=== PATIENT | male | born 1970 | race Hispanic/Latino ===

== ENCOUNTER 2018-07-06 11:04 | Inpatient (IN) | payer OTHER ==
[2018-07-06 13:09] LABS: #Basophils 0.1 thou/uL (0.0-0.2); #Eosinphils 0.1 thou/uL (0.0-0.7); #Lymphocytes 1.5 thou/uL (1.20-3.40); #Monocytes 0.5 thou/uL (0.11-0.59); #Neutrophils 2.9 thou/uL (1.40-6.50); %Basophils 1.3 % (0.0-1.0); %Eosinophils 2.5 % (0.0-10.0); %Lymphocytes 29.3 % (21.0-51.0); %Monocytes 9.4 % (0.0-10.0); %Neutrophils 57.5 % (42.0-75.0); Hemoglobin 14.4 g/dL (14.0-18.0); Mean Corpuscular HGB CONC 34.6 g/dL (32.0-36.0); Mean Corpuscular Hemoglobin 32.4 pg (27.0-31.0); Mean Corpuscular Volume 93.6 fL (78.0-98.0); Mean Platelet Volume 8.6 fL (7.4-10.4); Platelet Count 147 thou/uL (130-400); RBC Distribution Width 12.3 % (11.5-14.5); Red Blood Cell (RBC) Count 4.46 mill/uL (4.70-6.10); White Blood Cell (WBC) Count 5.1 thou/uL (4.8-10.8)
[2018-07-06 13:38] LABS: ALT (SGPT) 40 U/L (8-55); AST (SGOT) 32 U/L (5-34); Albumin 4.3 g/dL (3.5-5.0); Alkaline Phosphatase 61 U/L (40-150); Anion Gap 10 mmol/L (10-20); BUN (Urea Nitrogen) 14 mg/dL (8.9-20.6); Bilirubin, Total 0.4 mg/dL (0.2-1.2); Calc. Creatinine Clearance 0 mL/min (70-130); Calcium 9.2 mg/dL (7.8-10.44); Carbon Dioxide 28 mmol/L (22-29); Chloride 107 mmol/L (98-107); Estimated GFR-MDRD Greater than 90; Globulin 2.9 g/dL (2.4-3.5); Glucose 87 mg/dL (70-105); Potassium 4.1 mmol/L (3.5-5.1); Protein, Total 7.2 g/dL (6.0-8.3); Sodium 141 mmol/L (136-145)
[2018-07-06 13:43] LABS: CKMB 5.6 ng/mL (0-6.6)
--- NOTE | 2018-07-06 14:46 | CT ---
CT BRAIN WITHOUT CONTRAST: Date: 07/06/18 HISTORY: Headache. FINDINGS: No evidence of infarct, hemorrhage, midline shift, or abnormal extra-axial fluid collections are seen . The ventricular size is normal and the basilar cisterns are patent. The bony calvarium is intact. T he visualized paranasal sinuses and mastoid air cells are well aerated. IMPRESSION: No CT evidence of acute intracranial process. POS: [facility]
--- NOTE | 2018-07-06 14:57 | RAD ---
CHEST 1 VIEW: Date: 07/06/18 INDICATION: Left leg pain and tingling and left arm pain. FINDINGS: There is moderate cardiomegaly, stable to comparison dated 11/20/14. No definite consolidation, pleur al effusion, or pneumothorax is evident. No acute osseous abnormality is evident. Body habitus slight ly limits image detail. IMPRESSION: No definite acute abnormality within limitations of exam. Stable cardiomegaly. POS: [facility]
[2018-07-06 15:09] LABS: PTT 32.8 SEC (22.9-36.1)
--- NOTE | 2018-07-06 15:26 | CT ---
CTA HEAD WITH IV CONTRAST AND 3D POSTPROCESSING CTA NECK WITH IV CONTRAST AND 3D POSTPROCESSING: Date: 07/06/18 HISTORY: Headache. Left leg pain and tingling for 5 days. Left arm pain for 3 days. FINDINGS: There is good flow in the common carotid, internal carotid arteries and their major branches, and the vertebrobasilar system. No aneurysm or significant stenosis or major branch occlusion is seen. No ce rvical lymphadenopathy is seen. The airway is patent. There are degenerative changes in the spine. IMPRESSION: Unremarkable exam. POS: [facility]
[2018-07-06 15:46] LABS: Troponin I 0.139 ng/mL (< 0.028)
[2018-07-06] MEDS ORDERED: Iopamidol 370 76% 100 ML VIAL ONE (16:18)
[2018-07-06] MEDS ORDERED: Calcium Carbonate 500 MG ChewTAB PO PRN (18:57)
[2018-07-06] MEDS ORDERED: Guaifenesin DM 100-10/5 ML UDCUP PO PRN (18:57)
[2018-07-06] MEDS ORDERED: Acetaminophen 325 MG TAB PO PRN (18:57)
[2018-07-06] MEDS ORDERED: Enoxaparin Sodium 100 MG/ML SYRINGE SC SCH (21:00)
--- NOTE | 2018-07-06 21:39 | HP ---
REASON FOR ADMISSION: Left-sided paraesthesias, demand ischemia. HISTORY OF PRESENTING ILLNESS: The patient gives history of having left-sided paraesthesia for almost a week now. This was mostly in the left upper thigh area. From last 3 days, he developed paraesthesias and numbness, specifically numbness and burning sensation in the left hand from last 3 days. He went to work this morning, felt dizzy at work and finally made it to the emergency room here. The patient has not been feeling good and also is sleeping more than his usual sleep hours. He got concerned, hence came to emergency room. 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 The patient states that he has had a coronary angiogram done 3 years back, which was normal by Dr. Soto. No prior history of stroke. He says he is compliant with his CPAP machine for sleep apnea. No cough or expectoration. No history of fever. Currently, he is moving all extremities. PAST MEDICAL AND SURGICAL HISTORY: 1. Morbid obesity. 2. Right wrist tendon injury with repair and weakness in the hand secondary to that. 3. Obstructive sleep apnea, on CPAP. 4. Seasonal allergies. 5. Cardiac cath done 3 years ago, was normal. CURRENT MEDICATIONS: None. ALLERGIES: NO KNOWN DRUG ALLERGIES. PERSONAL HISTORY: Does not abuse alcohol or drugs. No history of smoking. FAMILY HISTORY: Mother has a history of hypertension and is at bedside here. Father of motor vehicle accident at the age of 59 years. Code status is full. Power of reprographics associate is his mom. REVIEW OF SYSTEMS: CONSTITUTIONAL: Negative for weight loss or gain, ability to conduct usual activities. SKIN: Negative for rash, itching. EYES: Negative for double vision, pain. ENT/MOUTH: Negative for nose bleeding, neck stiffness, pain, tenderness. CARDIOVASCULAR: Negative for palpitations, dyspnea on exertion, orthopnea. RESPIRATORY: Negative for shortness of breath, wheezing, cough, hemoptysis, fever or night sweats. GASTROINTESTINAL: Negative for poor appetite, abdominal pain, heartburn, nausea , vomiting, constipation, or diarrhea. GENITOURINARY: Negative for urgency, frequency, dysuria, nocturia. MUSCULOSKELETAL: Negative for pain, swelling. NEUROLOGIC/PSYCHIATRIC: Negative for anxiety, depression. ALLERGY/IMMUNOLOGIC: Negative for skin rash, bleeding tendency. PHYSICAL EXAMINATION: GENERAL: The patient is a 48-year-old male, who is currently not in any acute distress. VITAL SIGNS: Blood pressure 134/81, pulse 58 per minute, respiratory rate 20 per minute, temperature 97.8 degrees Fahrenheit, and saturating 93% on room air. NECK: Supple. No elevated JVD. HEENT: Eyes; extraocular muscles intact. Pupils reacting to light. Oral cavity; mucous membranes are moist. No exudates or congestion. CARDIOVASCULAR: S1 and S2 heard. Regular rhythm. RESPIRATORY: Air entry 1+ bilateral. No rales or rhonchi. ABDOMEN: Soft. Bowel sounds heard. No tenderness, rigidity, or guarding. EXTREMITIES: No peripheral edema or calf tenderness. VASCULAR SYSTEM: Peripheral pulses 2+ bilateral. No ischemic ulcerations or gangrenes. CENTRAL NERVOUS SYSTEM: Cranial nerves are grossly intact. Motor system; strength is 5/5 in all 4 extremities except right wrist area, where he has had prior tendon injury with repair. Reflexes are 2+ bilateral. Babinski is downgoing. Cerebellar signs are intact. Gait was not tested. PSYCHIATRIC: The patient's mood is euthymic. No hallucinations or delusions. LABORATORY DATA: CT angio head done shows good flow in the common carotid, internal carotid arteries and major branches. In the vertebrobasilar system, no aneurysm or significant stenosis or occlusion seen. No cervical lymphadenopathy. CT of brain without contrast done shows no acute intracranial abnormalities. Chest x-ray done shows no acute cardiopulmonary abnormalities, but there is mild cardiomegaly. White count of 5, H and H of 14 and 41, platelet count 147, MCV is 93 with 57% neutrophils. PT/INR/PTT within normal limits. Electrolytes are stable, BUN 14, creatinine 0.8, serum glucose 87. CK level is 387. Troponin I is indeterminate , peaking up to 0.14. CK-MB 5.6. BNP is 41. CLINICAL IMPRESSION AND PLAN: The patient will be under observation on stroke unit for left-sided paraesthesias to rule out transient ischemic attack. We will obtain MRI without contrast in the morning. He also has demand ischemia likely from his paraesthesias. He has had a normal coronary angiogram done just in 2014 with no flow-limiting disease seen. He is morbidly obese and also has obstructive sleep apnea. We will obtain vitamin B12 and folic acid levels. He will be on normal saline at 80 mL per hour for a total of 2 L. He will be on nitropaste 0.5 inch every 8 hourly along with the full dose of aspirin and Lipitor at 40 mg q.h.s. A small dose of Lopressor for cardiac protection. Echo with 2D Doppler will be obtained for LV function. We will obtain consultation with Dr. Melendez for Cardiology and Neurology on-call as well. The patient is morbidly obese and weighs around 172 kilos. He has life-threatening obesity and needs to work towards losing his weight with healthy eating and exercising. The patient had prior interest in doing gastric sleeve procedure 3 years ago, but has given up on that per prior records. Job ID: [id number] MTDD
[2018-07-06] MEDS: Sodium Chloride 0.9% 1,000 ML IV SCH (21:55)
[2018-07-06] MEDS: Atorvastatin Calcium 40 MG TAB PO SCH (21:56)
[2018-07-06] MEDS: Famotidine 20 MG TAB PO SCH (22:00)
[2018-07-06] MEDS: Metoprolol Tartrate 25 MG TAB PO SCH (22:00)
[2018-07-06] MEDS: Nitroglycerin 2% Ointment 1 INCH/1 GM Packet TOP SCH (22:01)
[2018-07-06 22:26] LABS: Troponin I 0.134 ng/mL (< 0.028)
[2018-07-07 06:01] LABS: #Eosinphils 0.2 thou/uL (0.0-0.7); #Lymphocytes 1.7 thou/uL (1.20-3.40); #Monocytes 0.5 thou/uL (0.11-0.59); #Neutrophils 2.7 thou/uL (1.40-6.50); %Basophils 0.7 % (0.0-1.0); %Lymphocytes 32.5 % (21.0-51.0); %Monocytes 10.6 % (0.0-10.0); %Neutrophils 52.2 % (42.0-75.0); Hemoglobin 13.7 g/dL (14.0-18.0); Mean Corpuscular HGB CONC 33.6 g/dL (32.0-36.0); Mean Corpuscular Hemoglobin 31.7 pg (27.0-31.0); Mean Corpuscular Volume 94.2 fL (78.0-98.0); Platelet Count 143 thou/uL (130-400); RBC Distribution Width 12.4 % (11.5-14.5); Red Blood Cell (RBC) Count 4.32 mill/uL (4.70-6.10); White Blood Cell (WBC) Count 5.1 thou/uL (4.8-10.8)
[2018-07-07] MEDS: Nitroglycerin 2% Ointment 1 INCH/1 GM Packet TOP SCH (06:19)
[2018-07-07 06:25] LABS: Anion Gap 12 mmol/L (10-20); BUN (Urea Nitrogen) 17 mg/dL (8.9-20.6); Calc. Creatinine Clearance 268 mL/min (70-130); Calcium 8.7 mg/dL (7.8-10.44); Carbon Dioxide 22 mmol/L (22-29); Cardiac Risk 4.7 (Less than 4.5); Chloride 107 mmol/L (98-107); Cholesterol 187 mg/dl (< 200 Desired); Estimated GFR-MDRD Greater than 90; Glucose 95 mg/dL (70-105); HDL Cholesterol 40 mg/dL (>60 Neg Risk); LDL Cholesterol, Calculated 93 mg/dL; Potassium 4.5 mmol/L (3.5-5.1); Sodium 136 mmol/L (136-145); Triglycerides 271 mg/dL (Less than 150)
[2018-07-07 08:48] LABS: Folate (Folic Acid) 12.3 ng/mL (7.0-31.4)
[2018-07-07] MEDS: Aspirin 325 mg Enteric Coated Tablet PO SCH (08:55)
[2018-07-07] MEDS: Famotidine 20 MG TAB PO SCH ×2 (08:55→20:42)
[2018-07-07] MEDS: Sodium Chloride 0.9% 1,000 ML IV SCH (09:47)
[2018-07-07] MEDS: Metoprolol Tartrate 25 MG TAB PO SCH ×2 (09:47→20:46)
--- NOTE | 2018-07-07 12:35 | PDOC.PN ---
- Subjective Encounter Start Date: 07/07/18 Encounter Start Time: 11:30 Subjective: still has left sided parasthesias (numbness and tingling), is moving well -: no chest pain or sob or palp - Objective Resuscitation Status - Order Detail: 07/06/18 18:50 Resuscitation Status Routine Resuscitation Status: FULL: Full Resuscitation MAR Reviewed: Yes Vital Signs & Weight: Vital Signs (12 hours) Temp Pulse Resp BP BP Pulse Ox 07/07/18 11:59 98.5 F 54 L 20 121/81 94 L 07/07/18 08:00 98.3 F 52 L 18 128/78 92 L 07/07/18 06:18 52 L 128/77 07/07/18 04:00 97.3 F L 56 L 19 119/68 93 L Weight Weight 379 lb 11.2 oz I&O: 07/06/18 07/07/18 07/08/18 06:59 06:59 06:59 Intake Total 645 Balance 645 Result Diagrams: 07/07/18 05:40 07/07/18 05:40 Phys Exam - Physical Examination HEENT: PERRLA, moist MMs Neck: no JVD, supple Respiratory: no wheezing, no rales Cardiovascular: RRR, no significant murmur Gastrointestinal: soft, non-tender, positive bowel sounds Musculoskeletal: no edema, pulses present Neurological: non-focal, moves all 4 limbs Psychiatric: normal affect, A&O x 3 Dx/Plan (1) TIA (transient ischemic attack) Code(s): G45.9 - TRANSIENT CEREBRAL ISCHEMIC ATTACK, UNSPECIFIED Status: Acute (2) Demand ischemia of myocardium Code(s): I24.8 - OTHER FORMS OF ACUTE ISCHEMIC HEART DISEASE Status: Acute (3) Morbid obesity Code(s): E66.01 - MORBID (SEVERE) OBESITY DUE TO EXCESS CALORIES Status: Chronic (4) ELISABETH (obstructive sleep apnea) Code(s): G47.33 - OBSTRUCTIVE SLEEP APNEA (ADULT) (PEDIATRIC) Status: Chronic (5) Dyslipidemia Code(s): E78.5 - HYPERLIPIDEMIA, UNSPECIFIED Status: Acute - Plan await MRI and echo results -: had normal cath 3 yrs back -: no motor deficits clinically -: add tricor and lipitor to asp -: dc lovenox full dose and nitropaste (asymptomatic with prior N cath) * . await cardio and neuro opinion. Review of Systems - Medications/Allergies Allergies/Adverse Reactions: Allergies Allergy/AdvReac Type Severity Reaction Status Date / Time No Known Allergies Allergy Verified 07/07/18 01:30 Medications: Current Medications Acetaminophen (Tylenol) 650 mg PO Q4H PRN PRN Reason: Headache/Fever/Mild Pain (1-3) Last Admin: 07/07/18 08:55 Dose: 650 mg Aspirin (Ecotrin) 325 mg PO DAILY [facility] Last Admin: 07/07/18 08:55 Dose: 325 mg Atorvastatin Calcium (Lipitor) 40 mg PO HS [facility] Last Admin: 07/06/18 21:56 Dose: 40 mg Calcium Carbonate (Tums) 1,000 mg PO Q4H PRN PRN Reason: Heartburn or Indigestion Famotidine (Pepcid) 20 mg PO BID [facility] Last Admin: 07/07/18 08:55 Dose: 20 mg Guaifenesin/Dextromethorphan (Robitussin Dm) 15 ml PO Q4H PRN PRN Reason: Cough Sodium Chloride (Normal Saline 0.9%) 1,000 mls @ 80 mls/hr IV .[id number] [facility] Stop: 07/07/18 19:59 Last Admin: 07/07/18 09:47 Dose: 1,000 mls Metoprolol Tartrate (Lopressor) 12.5 mg PO BID [facility] Last Admin: 07/07/18 09:47 Dose: 12.5 mg Sodium Chloride (Flush - Normal Saline) 10 ml IVF PRN PRN PRN Reason: Saline Flush
[2018-07-07] MEDS: Atorvastatin Calcium 40 MG TAB PO SCH (20:42)
--- NOTE | 2018-07-07 23:12 | CON ---
DATE OF CONSULTATION: 07/07/2018 REASON FOR NEUROLOGY CONSULT: Left-sided paresthesias. HISTORY OF PRESENT ILLNESS: This is a 48-year-old male, who states that for about a week, he has had symptoms on his left side. He states that his left upper leg experiences a burning pain and numbness on the anterolateral aspect of his left thigh. It is made worse if he walks. It gets better if he sits. It may last for few seconds or few minutes. The other thing he has experienced is he gets a burning pain and numbness in his left arm. He says it seems to start in his fingers, mainly the middle three fingers on the left hand. It often occurs during sleep and wakes him up. He states that there is a burning pain associated with this that emanates from his fingers up his arm towards his shoulder. He says that it seems to get worse during sleep. He typically sleeps on his back and holds the pillow to his chest with his arms crossed over the pillow. He uses a CPAP machine. He has been on CPAP for severe obstructive sleep apnea over the last 8 years. He states that his first CPAP worked very well, and he would feel very rested after 4 hours of sleep. Now on the current CPAP, he sleeps 12 or 13 hours and does not feel rested when he wakes up. His chronic medical problems are significant for sleep apnea, severe obesity, chronic right hand weakness due to an old tendon injury on his right hand. PAST MEDICAL HISTORY: Significant for sleep apnea. He has had a surgery couple of years ago for what was thought to be a chest tumor. He underwent thoracotomy on the lateral side of the chest. 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 He states that he used to be in [facility] in the past, and while he was in [facility], he was on a more healthier diet than he is now, and he lost 160 pounds. Gradually, since he has been out of [facility], he eats more fast food and has been gradually gaining more weight. He has a history of chest pain in the past, but he had a cardiac cath, which was negative several years ago. He has had surgery on his right wrist for the tendon damage. SOCIAL HISTORY: He does not smoke or drink. 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 FAMILY HISTORY: Positive for coronary artery disease and diabetes. REVIEW OF SYSTEMS: A 14-point review of systems is negative except for the numbness and pain episodes, also sleeping a lot. He also noted that he has filters in his house, which has an old central air unit, will get very dirty in just a matter of a couple of weeks. He and his brother live there at the house. They have been burning candles for the saints constantly 24 hours a day, and I am wondering if may be that is contributing to some of his problems. His mother is present at this time. PHYSICAL EXAMINATION: GENERAL: He is awake, alert, oriented x3. In general, he is morbidly obese. VITAL SIGNS: Weight is recorded in the chart at 379 pounds. HEENT: Normal. LUNGS: Clear. HEART: No murmurs. Regular rhythm. ABDOMEN: Protuberant. No masses. EXTREMITIES: No clubbing, cyanosis or edema. SKIN: No rashes. MUSCULOSKELETAL: Joints, no swelling. Right hand fingers are little weak with limited range of motion. There is a positive Phalen's sign on flexion of his left wrist. NEUROLOGIC: He is awake, alert, and oriented x3. Cranial nerves 2 through 12 tested normally. Pupils 2 mm and reactive. Discs are sharp. Motor, 5/5 strength in the arms and legs except for the right hand chronic injury to the tendon. DTRs are 1+. Toes are downgoing. Sensation is normal to light touch. Coordination, finger to nose and heel to melendez is normal. Gait normal. REVIEW OF STUDIES: Show CT of the brain and CT of the neck, does not show any significant stenosis of the arteries. CAT scan of the brain without contrast is normal. Note that an MRI of the brain was ordered; however, the MRI machine cannot accommodate him due to size. Other test results; hemoglobin is 13.7, hematocrit 40.7, platelets 143,000, white count 5.1. Troponins were elevated. There were several, 0.134, 0.140, 0.139, and 0.140. Normal is less than 0.028. Sodium is 136, potassium 4.5, chloride 107, CO2 of 22, BUN 17, creatinine 0.82, glucose was 95, calcium 8.7. Triglycerides elevated at 271. Cholesterol 187. LDL 93, HDL 40, B12 level is 987, which is okay. Folate is 12.30, which is normal. Pro-time 13.0, INR 1.0, PTT is 32.8. MEDICATIONS: Currently, he is on; 1. Lipitor. 2. Pepcid. 3. Tricor. 4. Metoprolol. 5. Aspirin 325 mg a day. IMPRESSION: 1. Episodes of left arm burning pain and tingling and left thigh burning and tingling. He did also notice some numbness of the left face. These symptoms could be consistent with transient ischemic attacks; however, could also be consistent and probably more likely due to peripheral nerve problems, possibly cervical radiculopathy and/or left carpal tunnel syndrome, also possibility of lumbar radiculopathy and/or lateral cutaneous nerve of thigh syndrome on the left. Of note, the MRI machine here cannot accommodate him. 2. Also I suspect that his sleep apnea has not been adequately treated because he is sleeping 12 or 13 hours a day and wakes up feeling un-rested. This can also lead to strokes or cardiac problems or heart attacks or arrhythmias, which could in turn lead to transient ischemic attacks or strokes. PLAN: Recommend echocardiogram, and I will see if that has been ordered. Also recommend manager case to help him get an MRI of the brain, MRI of the cervical spine, and MRI of the lumbar spine. These could of course be done as an outpatient. The patient also needs to be set up with an outpatient neurologist, so that he can get nerve testing for cervical and/or lumbar radiculopathy and possible carpal tunnel syndrome on the left. Also recommend that he see a sleep specialist and have a sleep study done with his current CPAP. This may need to be adjusted or he may need to have a new machine done. It appears that his sleep apnea is not being adequately treated, which can lead to heart problem, strokes, arrhythmias, and also more weight gain. He sees a Cardiology. He has also been consulted for his elevated troponins. I recommend that his thyroid be checked, and hemoglobin A1c. I see that a random blood sugar was not elevated; however, it does run in his family, in his brother. Also recommend that he try not to burn the candles in his house and may need to have his air conditioning unit replaced or inspected and possibly the air ducts cleaned or replaced. I discussed with the patient, his mother is also present. Job ID: [id number]
[2018-07-08] MEDS: Fenofibrate 48 MG TAB PO SCH (09:43)
[2018-07-08] MEDS: Aspirin 325 mg Enteric Coated Tablet PO SCH (09:43)
[2018-07-08] MEDS: Famotidine 20 MG TAB PO SCH ×2 (09:44→20:45)
--- NOTE | 2018-07-08 11:58 | PDOC.PN ---
- Subjective Encounter Start Date: 07/08/18 Encounter Start Time: 09:00 Subjective: no new complaints -: is ambulating in room -: no chest pain or palp - Objective Resuscitation Status - Order Detail: 07/06/18 18:50 Resuscitation Status Routine Resuscitation Status: FULL: Full Resuscitation MAR Reviewed: Yes Vital Signs & Weight: Vital Signs (12 hours) Temp Pulse Resp BP Pulse Ox 07/08/18 11:41 98.8 F 54 L 18 143/83 H 95 07/08/18 08:00 97.9 F 52 L 16 137/77 95 07/08/18 05:41 95 07/08/18 04:00 97.8 F 48 L 19 135/78 95 07/08/18 00:00 97.7 F 57 L 19 123/84 94 L Weight Weight 379 lb 11.2 oz I&O: 07/07/18 07/08/18 07/09/18 06:59 06:59 06:59 Intake Total 645 1347 Balance 645 1347 Result Diagrams: 07/07/18 05:40 07/07/18 05:40 Phys Exam - Physical Examination HEENT: PERRLA, moist MMs Neck: no JVD, supple Respiratory: no wheezing, no rales Cardiovascular: RRR, no significant murmur Gastrointestinal: soft, non-tender, positive bowel sounds Musculoskeletal: no edema, pulses present Neurological: non-focal, moves all 4 limbs Psychiatric: normal affect, A&O x 3 Dx/Plan (1) TIA (transient ischemic attack) Code(s): G45.9 - TRANSIENT CEREBRAL ISCHEMIC ATTACK, UNSPECIFIED Status: Acute (2) Demand ischemia of myocardium Code(s): I24.8 - OTHER FORMS OF ACUTE ISCHEMIC HEART DISEASE Status: Acute (3) Morbid obesity Code(s): E66.01 - MORBID (SEVERE) OBESITY DUE TO EXCESS CALORIES Status: Chronic (4) ELISABETH (obstructive sleep apnea) Code(s): G47.33 - OBSTRUCTIVE SLEEP APNEA (ADULT) (PEDIATRIC) Status: Chronic (5) Dyslipidemia Code(s): E78.5 - HYPERLIPIDEMIA, UNSPECIFIED Status: Acute - Plan hemo/neurostable -: Cannot fit in MRI machine, no focal motor deficits -: is going for stress test, dc home if -ve -: echo showed normal ef and wm -: on asp, lipitor and tricor, dc lopressor (HR 50's) * . Review of Systems - Medications/Allergies Allergies/Adverse Reactions: Allergies Allergy/AdvReac Type Severity Reaction Status Date / Time No Known Allergies Allergy Verified 07/07/18 01:30 Medications: Current Medications Acetaminophen (Tylenol) 650 mg PO Q4H PRN PRN Reason: Headache/Fever/Mild Pain (1-3) Last Admin: 07/07/18 08:55 Dose: 650 mg Aspirin (Ecotrin) 325 mg PO DAILY [facility] Last Admin: 07/08/18 09:43 Dose: 325 mg Atorvastatin Calcium (Lipitor) 40 mg PO HS [facility] Last Admin: 07/07/18 20:42 Dose: 40 mg Calcium Carbonate (Tums) 1,000 mg PO Q4H PRN PRN Reason: Heartburn or Indigestion Famotidine (Pepcid) 20 mg PO BID [facility] Last Admin: 07/08/18 09:44 Dose: 20 mg Fenofibrate (Tricor) 48 mg PO DAILY [facility] Last Admin: 07/08/18 09:43 Dose: 48 mg Guaifenesin/Dextromethorphan (Robitussin Dm) 15 ml PO Q4H PRN PRN Reason: Cough Sodium Chloride (Flush - Normal Saline) 10 ml IVF PRN PRN PRN Reason: Saline Flush Last Admin: 07/08/18 09:44 Dose: 10 ml
[2018-07-08] MEDS: Atorvastatin Calcium 40 MG TAB PO SCH (20:45)
[2018-07-09 01:15] VITALS: BMI 51.4
--- NOTE | 2018-07-09 07:49 | CON ---
DATE OF CONSULTATION: HISTORY OF PRESENT ILLNESS: Chandra Esparza is a 48-year-old male, who has been evaluated by Dr. Soto in the past. He was seen in the office for preoperative evaluation prior to gastric sleeve surgery, and a stress test was scheduled. However, Mr. Esparza decided against bariatric surgery and also did not have the stress test. He then presented in November 2014, with chest discomfort with 3 troponins in the indeterminate range. He underwent cardiac catheterization, which revealed normal coronary arteries. He now is admitted with complaints of left thigh pain as well as development of paresthesias and pain in his left arm. He denies any chest discomfort or shortness of breath. He states that he had been feeling very fatigued and decided to come for evaluation. PAST MEDICAL HISTORY: Morbid obesity, obstructive sleep apnea, and normal coronary arteries in 2014. PAST SURGICAL HISTORY: Right wrist surgery. 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 This was in [place]. MEDICATIONS: None. ALLERGIES: NONE. SOCIAL HISTORY: He does not smoke or drink. FAMILY HISTORY: Negative for coronary artery disease. REVIEW OF SYSTEMS: Twelve-point review of systems is unremarkable except as noted above. PHYSICAL EXAMINATION: VITAL SIGNS: Blood pressure 135/78, pulse of 48. He was on metoprolol 12.5 b.i.d., however, this has been discontinued. HEENT: PERRL. NECK: Supple. CHEST: Clear. CARDIAC: S1 and S2 are normal without any S3, S4, or murmurs. Carotid upstroke is normal without bruits. ABDOMEN: Morbidly obese. Normal bowel sounds. No tenderness. EXTREMITIES: Reveal trace pretibial edema. NEUROLOGICAL: Grossly intact. LABORATORY DATA: EKG reveals sinus bradycardia with nonspecific intraventricular conduction block. Hemoglobin 13.7, hematocrit 40.7, white count 5100, and platelets 143,000. Sodium 136, potassium 4.5, chloride 107, carbon dioxide 22, BUN 17, and creatinine 0.82. Troponin I has been up to 0.140. Cholesterol 187, triglycerides 271, HDL 40, and LDL 93. TSH is normal. CK-MB is normal. IMPRESSION: 1. Left leg pain, left arm pain and paresthesias, currently being evaluated by Neurology. 2. Indeterminate troponin I with history of normal coronary arteries 3 years ago. 3. Morbid obesity. 4. Obstructive sleep apnea. 5. History of left thoracotomy. PLAN: Mr. Esparza had normal coronary arteries on catheterization 3 years ago. Also, at that time, he had indeterminate troponin I. However, they certainly are higher this time. He will undergo adenosine Cardiolite testing for further evaluation. I agree with discontinuation of the beta-lurdes with his bradycardia. Job ID: [id number]
--- NOTE | 2018-07-09 07:51 | PRG ---
DATE OF SERVICE: 07/08/2018 NEUROLOGY FOLLOWUP NOTE SUBJECTIVE: Following up for left arm numbness and pain and left thigh numbness and burning. The patient states that he still has the same symptoms, which come and go. There is no weakness associated with this. He does note that the numbness and burning of the arm can wake him up from sleep. He also uses a CPAP at home for severe obstructive sleep apnea. He does not think that his current machine is working because he still sleeps 12 hours a day or more and still wakes up unrefreshed. The MRI here was attempted, but not able to accommodate his size. OBJECTIVE: VITAL SIGNS: Blood pressure 135/67, pulse 48, respiratory rate 18, temperature 98.4, O2 saturation is 95% on room air. HEENT: Normal. GENERAL: He is morbidly obese with a recorded weight of 379 pounds. LUNGS: Clear. EXTREMITIES: No edema. NEUROLOGIC: He is awake, alert. Cranial nerves 2 through 12 test normally. Motor; 5/5 strength in arms and legs. DTRs are 1+. Toes are downgoing. Sensation is intact except for a slight area of numbness in the lateral anterior area of the left thigh. REVIEW OF TEST RESULTS: Showed that CTA of the head and neck and CAT scan of the brain were normal. He had an echocardiogram, which showed technically difficult exam. Left atrium moderately dilated. There was a chest x-ray done on 07/06/2018, that showed moderate cardiomegaly stable to an exam that was done on November 20, 2014. There was no definite consolidation, pleural effusion, or pneumothorax. Body habitus slightly limited the exam detail. IMPRESSION: Episodic numbness, tingling, and burning pain in the left hand, which goes up his left arm and also in the anterolateral aspect of his left thigh. The symptoms could be consistent with transient ischemic attack, however, could also be consistent with a cervical and/or lumbar radiculopathy and could be consistent with left carpal tunnel syndrome and left meralgia paresthetica. He also sleeps excessive amount, and I suspect that his CPAP is not working. PLAN: manager of distribution pharmaceutical assistant to help the patient get an outpatient open MRI of the brain, cervical spine, and lumbar spine, and also follow up with an outpatient neurologist, so he can get nerve testing for cervical and lumbar radiculopathy and possible carpel tunnel syndrome on the left, and also recommend that he see a sleep specialist to have a sleep study done with his CPAP. I will order a wrist splint for his left upper extremity. I do not have any further neurological recommendations at this time. Neurology will sign off. Job ID: [id number]
[2018-07-09] MEDS: Aspirin 325 mg Enteric Coated Tablet PO SCH (09:30)
[2018-07-09] MEDS: Famotidine 20 MG TAB PO SCH (09:30)
[2018-07-09] MEDS: Fenofibrate 48 MG TAB PO SCH (09:34)
--- NOTE | 2018-07-09 10:57 | PDOC.PN ---
- Subjective Encounter Start Date: 07/09/18 Encounter Start Time: 09:00 Subjective: no chest pain or sob -: no new symptoms -: is amb in room - Objective Resuscitation Status - Order Detail: 07/06/18 18:50 Resuscitation Status Routine Resuscitation Status: FULL: Full Resuscitation MAR Reviewed: Yes Vital Signs & Weight: Vital Signs (12 hours) Temp Pulse Resp BP Pulse Ox 07/09/18 07:30 98.6 F 54 L 18 139/80 95 07/09/18 04:00 97.6 F 60 18 119/90 94 L 07/08/18 23:46 98.5 F 54 L 18 134/72 94 L Weight Weight 379 lb I&O: 07/08/18 07/09/18 07/10/18 06:59 06:59 06:59 Intake Total 1347 1080 Balance 1347 1080 Result Diagrams: 07/07/18 05:40 07/07/18 05:40 Phys Exam - Physical Examination HEENT: PERRLA, moist MMs Neck: no JVD, supple Respiratory: no wheezing, no rales Cardiovascular: RRR, no significant murmur Gastrointestinal: soft, non-tender, positive bowel sounds Musculoskeletal: no edema, pulses present Neurological: non-focal, moves all 4 limbs Psychiatric: normal affect, A&O x 3 Dx/Plan (1) TIA (transient ischemic attack) Code(s): G45.9 - TRANSIENT CEREBRAL ISCHEMIC ATTACK, UNSPECIFIED Status: Resolved (2) Demand ischemia of myocardium Code(s): I24.8 - OTHER FORMS OF ACUTE ISCHEMIC HEART DISEASE Status: Acute Comment: stable (3) Morbid obesity Code(s): E66.01 - MORBID (SEVERE) OBESITY DUE TO EXCESS CALORIES Status: Chronic (4) ELISABETH (obstructive sleep apnea) Code(s): G47.33 - OBSTRUCTIVE SLEEP APNEA (ADULT) (PEDIATRIC) Status: Chronic (5) Dyslipidemia Code(s): E78.5 - HYPERLIPIDEMIA, UNSPECIFIED Status: Acute - Plan await stress test results, if -ve home -: hemo/neuro stable -: needs outpt emg and f/u -: continue asp, lip, tricor * . Review of Systems - Medications/Allergies Allergies/Adverse Reactions: Allergies Allergy/AdvReac Type Severity Reaction Status Date / Time No Known Allergies Allergy Verified 07/07/18 01:30 Medications: Current Medications Acetaminophen (Tylenol) 650 mg PO Q4H PRN PRN Reason: Headache/Fever/Mild Pain (1-3) Last Admin: 07/07/18 08:55 Dose: 650 mg Aspirin (Ecotrin) 325 mg PO DAILY [facility] Last Admin: 07/09/18 09:30 Dose: 325 mg Atorvastatin Calcium (Lipitor) 40 mg PO HS [facility] Last Admin: 07/08/18 20:45 Dose: 40 mg Calcium Carbonate (Tums) 1,000 mg PO Q4H PRN PRN Reason: Heartburn or Indigestion Famotidine (Pepcid) 20 mg PO BID [facility] Last Admin: 07/09/18 09:30 Dose: 20 mg Fenofibrate (Tricor) 48 mg PO DAILY [facility] Last Admin: 07/09/18 09:34 Dose: 48 mg Guaifenesin/Dextromethorphan (Robitussin Dm) 15 ml PO Q4H PRN PRN Reason: Cough Sodium Chloride (Flush - Normal Saline) 10 ml IVF PRN PRN PRN Reason: Saline Flush Last Admin: 07/08/18 20:45 Dose: 10 ml
[2018-07-09] MEDS ORDERED: Regadenoson 0.4 MG/5 ML SYRINGE ONE (11:10)
--- NOTE | 2018-07-09 13:49 | NM ---
NUCLEAR MEDICINE CARDIAC PERFUSION EXAMINATION WITH EJECTION FRACTION: COMPARISON: None. HISTORY: 48-year-old male with chest pain. TECHNIQUE: A two day nuclear medicine cardiac perfusion examination was performed. Rest images were obtained usi ng 30.9 mCi of technetium-99m sestamibi. Stress images were obtained using 33 mCi of technetium-99m s estamibi and Lexiscan. FINDINGS: Tomographic images show no fixed or reversible perfusion defects. Gated images show normal wall motio n with an ejection fraction of 67%. EDV: 152 ml LHR: 0.2 TID: 0.9 IMPRESSION: No evidence of ischemia. POS: MARY
[2018-07-09 15:35] VITALS: BP 134/72; TEMP 98.7
--- NOTE | 2018-07-09 16:24 | DIS ---
DATE OF ADMISSION: 07/06/2018 DATE OF DISCHARGE: 07/09/2018 DISCHARGE DISPOSITION: Home. PRIMARY DISCHARGE DIAGNOSES: Transient ischemic attack, resolved; demand ischemia, stable with negative stress test. SECONDARY DISCHARGE DIAGNOSES: Morbid obesity; obstructive sleep apnea, on CPAP ; dyslipidemia. PROCEDURES DONE DURING HOSPITALIZATION: Echo with 2D Doppler showed an EF of 50 % to 55%. Nuclear stress test done showed no reversible ischemia. There were no fixed defects either. Ejection fraction was 67% with normal wall motion. CT angio of brain was unremarkable. CT of brain done without contrast showed no acute intracranial process. Chest x-ray done showed no acute infiltrate. Hemoglobin and hematocrit were 13 and 40, platelet count 143. Total cholesterol 187, triglycerides 271, LDL 93, HDL 40. B12 level is 987. Folic acid 12.3. TSH 1.76. Troponin was indeterminate peaking up to 0.14, CK-MB 5.6. DISCHARGE MEDICATIONS: 1. Aspirin 325 mg p.o. daily. 2. Tricor 48 mg p.o. daily. 3. Lipitor 40 mg p.o. daily. ALLERGIES: NO KNOWN DRUG ALLERGIES. INPATIENT CONSULTS: Dr. Janey Livingston for Neurology, Dr. Melendez for Cardiology. DISCHARGE PLAN: The patient to follow up with primary care physician in 1 week. BRIEF COURSE DURING HOSPITALIZATION: The patient initially got admitted with complaints of left-sided tingling and numbness. This was more in the hand area and left thigh area. The patient has had initial CT brain without contrast and CT angio of brain done which did not reveal any acute abnormality. He had indeterminate troponin as well. He was admitted to stroke unit and has had a complete neuro and cardiac workup done. The patient has had nuclear stress test done, which showed no fixed or reversible defects. In fact, he has had a cardiac catheterization done 3 years back, which showed no flow-limiting disease. He was evaluated by neurologist as well. The patient will need outpatient EMG studies via his primary care physician's referral. The patient also has some issues with his CPAP machine and has had sleep studies done in the last three years or so. He was advised to call his office machine servicer apprentice or sleep medicine physician and rectify the issues. He is ambulating and eating well. No focal motor deficits were noted. He was optimized on medications for hypertriglyceridemia and dyslipidemia. He is hemodynamically stable and will be shortly discharged home. Patient was seen and examined on the day of discharge. Also was counselled regarding his life threatening obesity and options of bariatric procedure if he failed diet and exercise regimens. Job ID: [id number] MTDD
[2018-07-11 07:37] LABS: Hemoglobin A 97.4 % (96.4-98.8); Hemoglobin A2 2.6 % (1.8-3.2); Hemoglobin F 0 % (0.0-2.0); Interpretation Note: (.)
== END 2018-07-09 17:02 | disposition home or self-care (01) | DRG 69 ==
LOC: ERS 11:04 → 2SE 20:00 → OBSVTOIN 20:00
PROVIDERS: ADMIT Internal Medicine; ATTEND Internal Medicine
DX: G45.9 Transient cerebral ischemic attack, unspecified (principal); Z68.43 Body mass index [BMI] 50.0-59.9, adult; I24.8 Other forms of acute ischemic heart disease; E66.01 Morbid (severe) obesity due to excess calories; G47.33 Obstructive sleep apnea (adult) (pediatric); E78.5 Hyperlipidemia, unspecified; R20.2 Paresthesia of skin; R00.1 Bradycardia, unspecified; Z82.49 Family history of ischemic heart disease and other diseases of the circulatory system
CPT/HCPCS: 36415; 70450; 70496; 70498; 71045; 78452; 80048; 80053; 80061; 82553; 82607; 82746; 83021; 83735; 83880; 84443; 84484; 85025; 85610; 85730; 90471; 90686; 93005; 93017; 93306; 94760; A9500; G0008; G8978-GP-CH; G8979-GP-CH; G8980-GP-CH; G8987-GO-CI; G8988-GO-CI; G8989-GO-CI; G8996-GN-CH; G8997-GN-CH; G8998-GN-CH; J1650; J2785

== ENCOUNTER 2018-10-04 13:01 | Observation (INO) | payer OTHER ==
[2018-10-04] MEDS ORDERED: Nitroglycerin 2% Ointment 1 INCH/1 GM Packet ONE (13:24)
[2018-10-04] MEDS ORDERED: Senokot S 8.6-50 MG TAB PO PRN ×2 (15:35)
[2018-10-04] MEDS ORDERED: Benzonatate 100 MG CAP PO PRN (15:35)
[2018-10-04] MEDS ORDERED: Nitroglycerin 0.4 MG TAB (25 Tab Bottle) SL PRN (15:35)
[2018-10-04] MEDS ORDERED: Diabetic Tussin 200 MG/10 ML UDCUP PO PRN (15:35)
[2018-10-04] MEDS ORDERED: Acetaminophen 325 MG TAB PO PRN (15:35)
[2018-10-04] MEDS ORDERED: Calcium Carbonate 500 MG ChewTAB PO PRN (15:35)
[2018-10-04] MEDS ORDERED: cloNIDine 0.1 MG TAB PO PRN (15:35)
[2018-10-04] MEDS ORDERED: hydrALAZINE 20 MG/ML VIAL SLOW IVP PRN (15:35)
[2018-10-04] MEDS ORDERED: Bisacodyl 5 MG TAB PO PRN ×2 (15:35)
[2018-10-04] MEDS ORDERED: Ondansetron PF 4 MG/2 ML Vial IVP PRN ×2 (15:35)
[2018-10-04 15:48] LABS: Acetaminophen Less than 6.0 mcg/mL (10.0-30.0); Alcohol Less than 10 mg/dL (Less than 10); Salicylate Less than 8.0 mg/dL (15.0-30.0)
--- NOTE | 2018-10-04 17:00 | HP ---
PRIMARY CARE PHYSICIAN: Dr. Leigh Lopez. CHIEF COMPLAINT: Dizziness. HISTORY OF PRESENTING ILLNESS: Mr. Esparza is a pleasant 48-year-old male with past medical history of morbid obesity, sleep apnea, on CPAP at night as well as history of dyslipidemia, who presented in the emergency room at [place] with the above-mentioned complaint. History is mainly obtained by the patient himself. Electronic medical records have been reviewed. Mr. Esparza was last admitted to our facility in July 2018 and he underwent a workup for possible TIA. At that time, he underwent a cardiac stress test as well as echocardiogram, which was unremarkable. He had a CT angio of his head and neck, also along with a CT of the brain, which was normal. He reports that he has been doing fairly well, but this morning while he was driving in the car with his brother to work, he started to feel a sudden onset of severe dizziness. He had to stop the car and let his brother drive. When they arrived to work, his dizziness did not get better, and he was driven to the emergency room in [place]. He continued to be dizzy over there as well. He reports that he has been having bouts of bronchitis for the last 2 months or so, treated by multiple rounds of antibiotics by the PCP. He still struggles with some chronic cough for the last 2 or 3 months. He reports that he has traveled to [place] earlier this month, which was a 3-hour flight and later he traveled to [place] by car a week later after that trip. He denies any shortness of breath or chest pain with these symptoms today. He did break out in a sweat. He denies any swelling or pain in his legs. He states that he is compliant with his CPAP machine and it is working properly, but he needs to change the filter multiple times. Interestingly, he reports that every time he is out of his house, his symptoms are much better. His brother, who lives in the house with him suffer from the similar symptoms of chronic bronchitis. They feel that the house has mold. He also reports that he burned multiple candles around the clock nonstop for the last few years because of some christian reasons. These candles burn day and night and even right now he has four candles burning in the house. Nevertheless, in the emergency room today, he was found to have indeterminate troponin and was sent to our facility for further workup. He was hemodynamically stable upon presentation with oxygen saturation 93% on room air, blood pressure 133/81. He is noted to have chronically elevated troponin, but his troponin was elevated more than the last time. It was repeated in our emergency room and it did not change much, but his CPK-MB came back elevated at this time at 7.0. His total creatine kinase was checked and was better. It was mildly elevated at 389. His EKG did not have any specific changes except for right bundle branch block. He was noted to have a heart rate sometimes down to 40s or 50s without any symptoms. He has received aspirin in the emergency room and his IV fluids. His dizziness is better. He denies any recent changes in his medication. No recent steroid use either. PAST MEDICAL HISTORY: 1. Morbid obesity. 2. Obstructive sleep apnea, on CPAP. 3. Seasonal allergies. 4. Cardiac cath done 3 years ago, which was normal. 5. Stress test done which was normal. PAST SURGICAL HISTORY: Right wrist tendon repair. ALLERGIES: NO KNOWN MEDICATION ALLERGIES. SOCIAL HISTORY: He denies any drug, tobacco, or alcohol abuse. Lives at his own home with his brother. FAMILY HISTORY: Significant for hypertension in his mother. Father of motor vehicle accident at the age of 59 years. CODE STATUS: Full code. Power of victorian literature professor is the mom. HOME MEDICATIONS: He takes 81 mg of aspirin and an unknown cholesterol pill. REVIEW OF SYSTEMS: A 12-point review of system was done. It is negative except for those mentioned in the history and physical. LABORATORY DATA: His CBC shows WBCs at 4.7, otherwise unremarkable. Serum chemistries show chloride 108, BUN 22, with creatinine of 0.85. His 1st troponin is 0.198 with repeat troponin of 0.196. His CK-MB was initially 5.5, which jumped up to 7.0. Chest x-ray was not done. The 12-lead EKG shows sinus bradycardia with right bundle branch block by my review. PHYSICAL EXAMINATION: VITAL SIGNS: Upon presentation to the ER, blood pressure 160/97, pulse of 51, respirations 16, saturating 95% on room air, and temperature 97.9. GENERAL: No acute distress. Lying comfortably in bed. Awake, alert, and oriented x3. HEENT: Mucous membrane is moist and pink. No oropharyngeal exudate or erythema. Head is normocephalic, atraumatic. Pupils are equal, reactive to light and accommodation. Extraocular movement intact. NECK: Supple without any lymphadenopathy, JVD, or bruit. CHEST: Clear to auscultation without any wheezing, rales, or rhonchi. ABDOMEN: Morbidly obese, soft, nontender, nondistended. Positive bowel sounds. EXTREMITIES: Free of any cyanosis, clubbing, or edema. NEUROLOGICAL: Nonfocal. SKIN: Free of any rashes or bruises. Feels warm and dry to touch. PSYCHIATRIC: Normal affect. IMPRESSION AND PLAN: 1. Dizziness. The patient has had a fairly thorough cardiac and neurological workup done less than 3 months ago, including a normal echocardiogram, a normal cardiac stress test and a normal CT angio of the head and neck. He does have elevated troponin more than his baseline now along with elevation of his CK-MB. He, however, has mild elevation of his total creatine kinase as well, so I am not sure if his CK-MB elevation is solely because of cardiac issues. He will be admitted under observation status and we will continue to trend serial cardiac enzymes and provide him with a full dose of aspirin for now. He will be monitored for any arrhythmias or bradycardia causing his symptoms. He has no neurological signs or symptoms at this time. a. We will check a D-dimer given his recent history of travel and if it is abnormal, we will do a CT angiogram to rule out pulmonary embolism. b. Also given his history of having multiple candles burning day and night for the last few years, a small possibility of carbon monoxide poisoning is also not completely ruled out. Even though it is far fetched, we will go ahead and check an ABG for carboxyhemoglobin level. If it is elevated, he will be treated with high-flow oxygen. c. The possibility of hypercarbia with baseline sleep apnea is also entertained. ABG will be checked as above. He can also have vestibular symptoms from recent repeated bouts of bronchitis if all of the cardiac workup is negative. 2. Morbid obesity. Continue continuous positive airway pressure while in the hospital. 3. History of dyslipidemia. Reconcile home medication once confirmed. 4. Morbid obesity. The patient educated about diet and exercise program and noninvasive weight loss procedures. DISPOSITION: Mr. Esparza is currently being admitted to the hospital with indeterminate troponin and dizziness for further workup. Estimated length of stay at this time is less than two midnights. Further management will depend upon his clinical course. Job ID: [id number]
[2018-10-04 17:49] LABS: CKMB 6.2 ng/mL (0-6.6)
[2018-10-04 18:21] LABS: Actual Bicarbonate (HCO3a) 26.7 mEq/L (22-28); Analyzer IN Cardio ER; Base Excess (BEa) 2.2 mEq/L (-2.0 to +3.0); CO2 Tension 41.1 mmHg (35.0-45.0); Calcium, Ionized 1.16 mmol/L (1.12-1.30); Carboxyhemoglobin (COHb) 0.5 gm% (0.0-3.0); Hemoglobin (Hb) 14.3 g/dL (14.0-18.0); O2 Tension (PaO2) 73.5 mmHg (80.0-100.0); Potassium - ABG Lab 3.73 mmol/L (3.70-5.30); pH, Arterial 7.43 (7.35-7.45)
[2018-10-04 18:23] LABS: ALV-art Gradient 24.855 (0-20); Puncture Site RRA
[2018-10-04 20:30] VITALS: BMI 51.0
[2018-10-04 21:55] LABS: Troponin I 0.165 ng/mL (< 0.028)
[2018-10-05 05:29] LABS: #Eosinphils 0.2 thou/uL (0.0-0.7); #Lymphocytes 1.6 thou/uL (1.20-3.40); #Monocytes 0.7 thou/uL (0.11-0.59); #Neutrophils 3.8 thou/uL (1.40-6.50); %Basophils 0.8 % (0.0-1.0); %Eosinophils 3.6 % (0.0-10.0); %Lymphocytes 24.8 % (21.0-51.0); %Monocytes 10.4 % (0.0-10.0); %Neutrophils 60.4 % (42.0-75.0); Hemoglobin 13.4 g/dL (14.0-18.0); Mean Corpuscular HGB CONC 32.9 g/dL (32.0-36.0); Mean Corpuscular Volume 97.4 fL (78.0-98.0); Mean Platelet Volume 9.2 fL (7.4-10.4); Platelet Count 142 thou/uL (130-400); RBC Distribution Width 12.6 % (11.5-14.5); Red Blood Cell (RBC) Count 4.18 mill/uL (4.70-6.10); White Blood Cell (WBC) Count 6.3 thou/uL (4.8-10.8)
[2018-10-05 05:46] LABS: Anion Gap 10 mmol/L (10-20); BUN (Urea Nitrogen) 19 mg/dL (8.9-20.6); Calc. Creatinine Clearance 266 mL/min (70-130); Calcium 9.1 mg/dL (7.8-10.44); Carbon Dioxide 26 mmol/L (22-29); Chloride 107 mmol/L (98-107); Estimated GFR-MDRD Greater than 90; Glucose 88 mg/dL (70-105); Potassium 3.9 mmol/L (3.5-5.1); Sodium 139 mmol/L (136-145)
[2018-10-05] MEDS ORDERED: Aspirin 325 MG TAB PO SCH (08:00)
[2018-10-05] MEDS ORDERED: Enoxaparin Sodium 40 MG/0.4 ML SYRINGE SC SCH (09:00)
[2018-10-05 12:04] VITALS: BP 128/62; TEMP 98.3
[2018-10-05] MEDS ORDERED: Atorvastatin Calcium 40 MG TAB PO SCH (21:00)
--- NOTE | 2018-10-06 02:47 | DIS ---
DATE OF ADMISSION: 10/04/2018 DATE OF DISCHARGE: 10/05/2018 CONDITION: At the time of discharge, stable and improved. DISCHARGE DIAGNOSES: 1. Dizziness of unclear etiology, likely vestibular in nature. 2. Morbid obesity. 3. Obstructive sleep apnea, on CPAP. DISCHARGE MEDICATIONS: 1. Aspirin 325 mg daily. 2. Atorvastatin 40 mg daily. PRIMARY CARE PHYSICIAN: Leigh Lopez DO HISTORY OF PRESENTING ILLNESS: Mr. Esparza is a very pleasant 48-year-old overweight male with past medical history of sleep apnea, who presented to the emergency room with complaints of dizziness of sudden onset. It was associated with some diaphoresis, and he presented to outside emergency room. He was recently admitted to our facility in June 2018, at which time, he had a normal nuclear medicine stress test and echocardiogram. He also has had a negative cardiac catheterization in 2014. Upon presentation, he was hemodynamically stable. His initial cardiac enzymes were indeterminate, which seemed to be chronic for this patient. However, his rise in CK-MB prompted admission. His D-dimer was negative at the time of admission. HOSPITAL COURSE: The patient remained stable throughout the hospitalization. He was on telemetry monitoring. He did not have any arrhythmias. He did have right bundle-branch block on the EKG and his heart rate was running sometimes in high 40s to high 50s. He had some minor dizziness, but nothing major like that prompted him to come to the hospital. His repeat CK-MB was normal and cardiac enzymes trended low normal too. At this time, it seems like his symptoms can be due to the bradycardia and right bundle-branch block. After discussing it with on-call hospice volunteer, Dr. Melendez, graciously helped me set him up with a Holter monitor through his clinic. He will follow up with Cardiology Clinic with Dr. Soto who has seen him in the past. He is instructed about the use of CPAP machine, which he is compliant with. He is also found to be burning candles 27/02 due to some voodoo reasons in the house and feels that the house also has mold giving him allergies and chronic bronchitis. He is instructed to get the house inspected and move out if possible. He is also instructed to stop burning the candles. As of this morning, he is hemodynamically stable and asymptomatic and feels better and will be discharged home. His blood pressure is 128/62, heart rate anywhere from 46 to 54. No acute distress. Chest clear to auscultation bilaterally, rate and rhythm are regular. Job ID: [id number]
== END 2018-10-05 13:28 | disposition home or self-care (01) ==
LOC: ERS 13:01 → 2SW 16:35
PROVIDERS: ADMIT Internal Medicine; ATTEND Internal Medicine
DX: J96.90 Respiratory failure, unspecified, unspecified whether with hypoxia or hypercapnia (principal); E78.5 Hyperlipidemia, unspecified; G47.33 Obstructive sleep apnea (adult) (pediatric); E66.01 Morbid (severe) obesity due to excess calories; Z68.43 Body mass index [BMI] 50.0-59.9, adult; Z79.82 Long term (current) use of aspirin; Z79.899 Other long term (current) drug therapy; Z99.89 Dependence on other enabling machines and devices
CPT/HCPCS: 36415; 80048; 80307; 82550; 82553; 82805; 85025; 85379; 93005; 96372; G0378; J1650

== ENCOUNTER 2019-12-19 11:49 | Inpatient (IN) | payer OTHER ==
[2019-12-19 12:33] LABS: #Eosinphils 0.2 thou/uL (0.0-0.7); #Lymphocytes 1.4 thou/uL (1.20-3.40); #Monocytes 0.6 thou/uL (0.11-0.59); %Basophils 0.6 % (0.0-1.0); %Eosinophils 2.8 % (0.0-10.0); %Monocytes 9.4 % (0.0-10.0); %Neutrophils 65.1 % (42.0-75.0); Hemoglobin 15.1 g/dL (14.0-18.0); Mean Corpuscular HGB CONC 32.7 g/dL (32.0-36.0); Mean Corpuscular Hemoglobin 31.5 pg (27.0-31.0); Mean Corpuscular Volume 96.4 fL (78.0-98.0); Mean Platelet Volume 9.1 fL (7.4-10.4); Platelet Count 140 thou/uL (130-400); RBC Distribution Width 12.9 % (11.5-14.5); White Blood Cell (WBC) Count 6.1 thou/uL (4.8-10.8)
[2019-12-19 12:54] LABS: ALT (SGPT) 30 U/L (8-55); AST (SGOT) 24 U/L (5-34); Albumin 4.3 g/dL (3.5-5.0); Alkaline Phosphatase 61 U/L (40-110); Anion Gap 13 mmol/L (10-20); BUN (Urea Nitrogen) 23 mg/dL (8.9-20.6); Bilirubin, Total 0.4 mg/dL (0.2-1.2); CK (CPK) 243 U/L (30-200); Calc. Creatinine Clearance 0 mL/min (70-130); Calcium 9.3 mg/dL (7.8-10.44); Carbon Dioxide 23 mmol/L (22-29); Chloride 106 mmol/L (98-107); Estimated GFR-MDRD Greater than 90; Globulin 2.9 g/dL (2.4-3.5); Glucose 89 mg/dL (70-105); Potassium 4.1 mmol/L (3.5-5.1); Protein, Total 7.2 g/dL (6.0-8.3); Sodium 138 mmol/L (136-145)
[2019-12-19] MEDS ORDERED: Aspirin Chewable 81 MG TAB ONE (13:10)
[2019-12-19 13:16] LABS: CKMB 5.6 ng/mL (0-6.6)
--- NOTE | 2019-12-19 15:03 | RAD ---
TWO VIEW CHEST: 12/19/19 PA and lateral views obtained. INDICATIONS: Cough. COMPARISON: 05/17/14. There is mild cardiomegaly which was present on the prior exam and appears stable. The lungs appear c lear. No infiltrate or vascular congestion. No effusion. Osseous structures unremarkable with mild de generative changes in the spine. IMPRESSION: Cardiomegaly again noted. No acute lung process. POS: AGW
[2019-12-19 16:17] VITALS: BMI 50.9
[2019-12-19] MEDS ORDERED: Ondansetron PF 4 MG/2 ML Vial IVP PRN (16:52)
[2019-12-19 17:03] LABS: Troponin I 0.105 ng/mL (< 0.028)
[2019-12-19] MEDS ORDERED: Sodium Chloride 0.9% 1,000 ML IV SCH (17:15)
--- NOTE | 2019-12-19 17:20 | PDOC.HHP ---
Hospitalist HPI - History of Present Illness chest pain History of Present Illness: 49M w/ MHx of chronic bronchitis, ELISABETH (on CPAP, adherent), and morbid obesity presents with chest pain. Has had dry cough for months, but in past month or so increased in frequency, mostly in work environment. Starting Monday, progressively worse, left sided stabbing chest pain surrounding the medial part of his breath that was unchanged when he coughs. Not related to exertion. For the pain, he tried tylenol, which helped. Also endorses increased fatigue over the pat few days. Works with cattle and exerts himself, sometimes to the point of shortness of breath. On encounter, lying comfortably in bed and endorses improvement in pain since arrived to the ED. denies fever, chills, chest pain, pleuritic pain, dyspnea, sputum production, abdomianl pain, diarrhea, dysuria, recent sick contacts or travel ED Course: In the ED, found to have intdeterminate trop, EKG showed nonspecific conduction delay but no signs of ischemia. Was admitted to telemetry for further workup Hospitalist ROS - Review of Systems All other systems reviewed; all pertinent +/- noted in HPI/Subj Hospitalist History - Past Medical History Source: patient Cardiac: reports: no pertinent history Pulmonary: reports: bronchitis WOOL BRUSHER: reports: no pertinent history Gastrointestinal: reports: no pertinent history Heme/Onc: reports: no pertinent history Hepatobiliary: reports: no pertinent history Psych: reports: no pertinent history - Past Surgical History Past Surgical History: reports: no pertinent history - Family History Other Family History: obesity - Social History Smoking Status: Never smoker Alcohol: reports: Rare Drugs: reports: none Living Situation: Alone Activity level: independent ambulation - Exam General Appearance: NAD, awake alert General - other findings: morbidly obese Heart: RRR, no murmur, no gallops, no rubs, normal peripheral pulses Respiratory: no wheezes, no rales, no ronchi, normal chest expansion, no tachypnea, normal percussion Respiratory - other findings: diffusely reduced breath sounds, likely due to body habitus Extremities: no edema Psychiatric: normal affect, normal behavior, A&O x 3 Hospitalist Results - Labs Result Diagrams: 12/19/19 12:22 12/19/19 12:22 Lab results: WBC 6.1 thou/uL (4.8-10.8) 12/19/19 12:22 Hgb 15.1 g/dL (14.0-18.0) 12/19/19 12:22 Hct 46.3 % (42.0-52.0) 12/19/19 12:22 MCV 96.4 fL (78.0-98.0) 12/19/19 12:22 Plt Count 140 thou/uL (130-400) 12/19/19 12:22 Neutrophils % 65.1 % (42.0-75.0) 12/19/19 12:22 Sodium 138 mmol/L (136-145) 12/19/19 12:22 Potassium 4.1 mmol/L (3.5-5.1) 12/19/19 12:22 Chloride 106 mmol/L (98-107) 12/19/19 12:22 Carbon Dioxide 23 mmol/L (22-29) 12/19/19 12:22 BUN 23 mg/dL (8.9-20.6) H 12/19/19 12:22 Creatinine 0.79 mg/dL (0.7-1.3) 12/19/19 12:22 Glucose 89 mg/dL (70-105) 12/19/19 12:22 Calcium 9.3 mg/dL (7.8-10.44) 12/19/19 12:22 Total Bilirubin 0.4 mg/dL (0.2-1.2) 12/19/19 12:22 AST 24 U/L (5-34) 12/19/19 12:22 ALT 30 U/L (8-55) 12/19/19 12:22 Alkaline Phosphatase 61 U/L (40-110) 12/19/19 12:22 Creatine Kinase 243 U/L (30-200) H 12/19/19 12:22 CK-MB (CK-2) 5.6 ng/mL (0-6.6) 12/19/19 12:22 Troponin I 0.105 ng/mL (< 0.028) H 12/19/19 16:26 Serum Total Protein 7.2 g/dL (6.0-8.3) 12/19/19 12:22 Albumin 4.3 g/dL (3.5-5.0) 12/19/19 12:22 - EKG Interpretation EKG: as per HPI - Radiology Interpretation Chest x-ray Status: image reviewed by me Hospitalist H&P A/P - Problem (1) Acute exacerbation of chronic bronchitis Code(s): J20.9 - ACUTE BRONCHITIS, UNSPECIFIED; J42 - UNSPECIFIED CHRONIC BRONCHITIS Status: Acute (2) Morbid obesity Code(s): E66.01 - MORBID (SEVERE) OBESITY DUE TO EXCESS CALORIES Status: Chronic (3) ELISABETH (obstructive sleep apnea) Code(s): G47.33 - OBSTRUCTIVE SLEEP APNEA (ADULT) (PEDIATRIC) Status: Chronic - Plan Plan: #acute exacerbation of chronic bronchitis -endorses having cough for at least 3 months in each of the last two years, worse last month, mostly at work -likely URI vs. allergen -Chest pain noncardiac in nature; troponinemia appears to be chronic likely due to cor pulmonale -stress test in 2018 negative; pretest CAD consortium score low -acetaminophen PRN chest pain -viral panel -keep oxygen > 88% #ELISABETH -uses home CPAP when sleeps #morbid obesity -endorses bad eating habits, especially during COVID period -will benefit from outpatient analytical research chemist and bariatric surgery consultation considering BMI Dispo/PPx full code DVT ppx lovenox GI PPx no indication ELOS 1 midnight
[2019-12-19] MEDS ORDERED: Acetaminophen 500 MG TAB PO PRN (17:21)
[2019-12-19 20:02] LABS: Troponin I 0.108 ng/mL (< 0.028)
[2019-12-20 04:48] LABS: Anion Gap 13 mmol/L (10-20); BUN (Urea Nitrogen) 19 mg/dL (8.9-20.6); Calc. Creatinine Clearance 234 mL/min (70-130); Calcium 8.9 mg/dL (7.8-10.44); Carbon Dioxide 26 mmol/L (22-29); Chloride 105 mmol/L (98-107); Estimated GFR-MDRD 87; Glucose 87 mg/dL (70-105); Potassium 3.8 mmol/L (3.5-5.1); Sodium 140 mmol/L (136-145)
[2019-12-20] MEDS: Fluticasone Propionate Nasal Spray 16 gm Bottle NASAL SCH (09:33)
[2019-12-20] MEDS ORDERED: Regadenoson 0.4 MG/5 ML SYRINGE ONE (09:44)
[2019-12-20] MEDS ORDERED: Ketorolac Tromethamine 30 MG/ML VIAL IVP SCH (12:00)
[2019-12-20] MEDS: Enoxaparin Sodium 40 MG/0.4 ML SYRINGE SC SCH (15:53)
[2019-12-20] MEDS: Ibuprofen 800 MG TAB PO SCH (16:58)
--- NOTE | 2019-12-20 17:25 | CON ---
DATE OF CONSULTATION: HISTORY OF PRESENT ILLNESS: This patient is a pleasant 49-year-old gentleman who presents with recurrent chest discomfort. The patient was seen initially in 2014 with chest discomfort. He subsequently underwent cardiac catheterization, which revealed normal coronary arteries. The patient presented once again in 2018 with atypical chest pain. He underwent a Cardiolite stress test, which revealed no evidence of ischemia. The patient states he was in his usual state of health until this Monday. He once again developed left-sided chest discomfort. This has been a persistent discomfort for the last 5 days. The discomfort seems to be worse when he takes a deep breath. The patient also reports noticing increasing fatigue. The patient denies having any history of lightheadedness or syncope. PAST MEDICAL HISTORY: 1. Sleep apnea. 2. Dyslipidemia. 3. Morbid obesity. PAST SURGICAL HISTORY: 1. Chest surgery. 2. Wrist surgery. SOCIAL HISTORY: Nonsmoker. ALLERGIES: NO KNOWN DRUG ALLERGIES. MEDICATIONS: see nursing list. FAMILY HISTORY: Strong family history with a brother had coronary artery bypass graft surgery. REVIEW OF SYSTEMS: Ten-point system otherwise unremarkable. PHYSICAL EXAMINATION: GENERAL: Obese gentleman, in no acute distress. VITAL SIGNS: Blood pressure 126/64. NECK: No jugular venous distention. LUNGS: Clear to auscultation. HEART: Regular rate and rhythm. Normal S1 and S2. No murmurs. ABDOMEN: Distended. EXTREMITIES: No edema. VASCULAR: Radial pulses are 2+. LABORATORY RESULTS: Sodium is 140, potassium 3.8, chloride 105, bicarb 26, BUN 19, and creatinine 0.92. Troponin was 0.1. White blood cell count 6.1, hemoglobin 15.1, hematocrit 46.3, and his platelets are 140. EKG revealed normal sinus rhythm, nonspecific intraventricular conduction delay, nonspecific T-wave abnormality. Telemetry monitoring sinus bradycardia with pauses up to 2.4 seconds. IMPRESSION: 1. Chest pain, atypical, possibly due to pleurisy. 2. Bradycardia, probably secondary to sleep apnea. 3. Sleep apnea. 4. Morbid obesity. 5. Family history of coronary artery disease. This gentleman presents with atypical chest pain. This has been persistent for the past 5 days. His troponin level is indeterminate. Because of his strong family history, we would recommend repeat stress testing to make sure there is no evidence of significant ischemia. The patient will be treated with Toradol for possible pleurisy. From a cardiac standpoint, he has significant bradycardia, but is asymptomatic and this is most likely due to his underlying bradycardia. PLAN: 1. Treat with IV Toradol and nonsteroidal medication. 2. Repeat stress testing to make sure there is no evidence of significant ischemia. Job ID: [id number] MTDD
--- NOTE | 2019-12-20 20:42 | PDOC.HOSPP ---
- Subjective Encounter Date: 12/20/19 Encounter Time: 09:00 Subjective: overnight, multiple short pauses on telemetry between 1-3 seconds each. Continues to complain of increased fatigue. Chest pain improves with tylenol - Objective Vital Signs & Weight: Vital Signs (12 hours) Temp Pulse Resp BP BP Pulse Ox 12/20/19 19:40 98.3 F 56 L 20 146/73 H 95 12/20/19 15:41 97.9 F 50 L 16 128/70 95 12/20/19 11:02 98.0 F 50 L 18 126/64 96 Weight Weight 371 lb 7 oz I&O: 12/19/19 12/20/19 12/21/19 06:59 06:59 06:59 Intake Total 720 700 Output Total 700 Balance 720 0 Result Diagrams: 12/19/19 12:22 12/20/19 04:03 Hospitalist ROS - Review of Systems Constitutional: denies: fever, chills, sweats, weakness, malaise, other Respiratory: denies: cough, dry, shortness of breath, hemoptysis, SOB with excertion, pleuritic pain, sputum, wheezing, other Cardiovascular: reports: chest pain. denies: palpitations, orthopnea, paroxysmal noc. dyspnea Gastrointestinal: denies: nausea, vomiting, abdominal pain, diarrhea, constipation, melena, hematochezia, other Genitourinary: denies: dysuria, frequency, incontinence, hematuria, retention, other - Medication Medications: Active Medications Generic Name Dose Route Start Last Admin Trade Name Freq PRN Reason Stop Dose Admin Acetaminophen 1,000 mg 12/19/19 17:21 12/19/19 20:05 Tylenol PO 1,000 mg Q6H PRN Administration Moderate to Severe Pain (6-10) Enoxaparin Sodium 40 mg 12/20/19 09:00 12/20/19 15:53 Lovenox SC 40 mg 0900 FACUNDO Administration Fluticasone Propionate 0 gm 12/20/19 09:00 12/20/19 09:33 Flonase Nasal [place] NASAL 2 spr DAILY FACUNDO Administration Ibuprofen 800 mg 12/20/19 17:00 12/20/19 16:58 Motrin PO 800 mg TID- FACUNDO Administration - Exam General Appearance: NAD, awake alert Neck: no JVD Heart: RRR, no murmur, no gallops, no rubs, normal peripheral pulses Respiratory: CTAB, no wheezes, no rales, no ronchi, normal chest expansion, no tachypnea, normal percussion Gastrointestinal: soft, non-tender, non-distended, normal bowel sounds Extremities: no edema Psychiatric: normal affect, normal behavior, A&O x 3 Hosp A/P (1) Acute exacerbation of chronic bronchitis Code(s): J20.9 - ACUTE BRONCHITIS, UNSPECIFIED; J42 - UNSPECIFIED CHRONIC BRONCHITIS Status: Acute (2) Morbid obesity Code(s): E66.01 - MORBID (SEVERE) OBESITY DUE TO EXCESS CALORIES Status: Chronic (3) ELISABETH (obstructive sleep apnea) Code(s): G47.33 - OBSTRUCTIVE SLEEP APNEA (ADULT) (PEDIATRIC) Status: Chronic - Plan #Multiple pauses on telemetry -while sleeping -pending stress test #chest pain -atypical, improved with tylenol -changed to ibuprofen for better antiinflammatory properties compared to tylenol
[2019-12-21] MEDS: Fluticasone Propionate Nasal Spray 16 gm Bottle NASAL SCH (08:17)
[2019-12-21] MEDS: Ibuprofen 800 MG TAB PO SCH ×3 (08:17→16:03)
--- NOTE | 2019-12-21 13:11 | NM ---
NUCLEAR MEDICINE CARDIAC MYOCARDIAL PERFUSION SPECT EJECTION FRACTION STUDY WALL MOTION CINE: DATE: 12/21/2019 HISTORY: 49 year old male with dyslipidemia and family history of coronary artery disease presents with chest pain and elevated troponin TECHNIQUE: Number of days: 2 Rest study: Technetium 99m-sestamibi (Cardiolite) dose: 30.6 mCi Pharmacologic stress: Lexiscan dose: 0.4 mg Stress study: Technetium 99m-sestamibi (Cardiolite) dose: 31.7 mCi FINDINGS: CARDIAC (MYOCARDIAL PERFUSION) SPECT Images are somewhat degraded by motion. There is a small anterior wall apparently fixed defect. There are no reversible myocardial perfusion defects. EJECTION FRACTION STUDY Left ventricular EF = 46 % WALL MOTION CINE Hypokinesis of the posterior aspect of the septum IMPRESSION: 1. No evidence of reversible ischemia. 2. Decreased left ventricular ejection fraction of 46%. 3. Possible anterior wall small old infarction.
[2019-12-21] MEDS: Enoxaparin Sodium 40 MG/0.4 ML SYRINGE SC SCH (14:12)
[2019-12-21 14:59] LABS: Hep C IgG Ab Non-Reactive (NonReactive); Hep C Index 0.08 S/CO (0-0.79); Thyroid Stimulating Hormone 1.6252 uIU/mL (0.35-4.94)
--- NOTE | 2019-12-21 15:08 | EKG ---
Test Reason : Blood Pressure : / mmHG Vent. Rate : 055 BPM Atrial Rate : 055 BPM P-R Int : 182 ms QRS Dur : 120 ms QT Int : 468 ms P-R-T Axes : 037 006 013 degrees QTc Int : 447 ms Sinus bradycardia Non-specific intra-ventricular conduction delay Nonspecific T wave abnormality Abnormal ECG When compared with ECG of 04-OCT-2018 13:15, No significant change was found Triage Confirmed by MACY CHAVARRIA, ALECIA Richmond ([id number]), staff editor MARCELLE HEBERT ([id number]) on 12/21/2019 3:08:08 PM Referred By: Confirmed By:ALECIA CAVAZOS MD
--- NOTE | 2019-12-21 21:19 | PDOC.HOSPP ---
- Subjective Encounter Date: 12/21/19 Encounter Time: 13:00 Subjective: no overnight events. s/p stress test pending final report - Objective Vital Signs & Weight: Vital Signs (12 hours) Temp Pulse Resp BP Pulse Ox 12/21/19 15:58 98.0 F 53 L 16 136/76 97 12/21/19 12:34 98.0 F 52 L 14 127/68 95 12/21/19 10:48 95 Weight Weight 375 lb 3.2 oz I&O: 12/20/19 12/21/19 12/22/19 06:59 06:59 06:59 Intake Total 138 442 5170 Output Total 1250 1575 Balance 986 -684 -702 Result Diagrams: 12/19/19 12:22 12/20/19 04:03 Hospitalist ROS - Review of Systems Constitutional: denies: fever, chills, sweats, weakness, malaise, other Respiratory: denies: cough, dry, shortness of breath, hemoptysis, SOB with excertion, pleuritic pain, sputum, wheezing, other Cardiovascular: denies: palpitations, orthopnea, paroxysmal noc. dyspnea, edema Gastrointestinal: denies: nausea, vomiting, abdominal pain, diarrhea, constipation, melena, hematochezia, other Genitourinary: denies: dysuria, frequency, incontinence, hematuria, retention, other - Medication Medications: Active Medications Generic Name Dose Route Start Last Admin Trade Name Freq PRN Reason Stop Dose Admin Enoxaparin Sodium 40 mg 12/20/19 09:00 12/21/19 14:12 Lovenox SC 40 mg 0900 FACUNDO Administration Fluticasone Propionate 0 gm 12/20/19 09:00 12/21/19 08:17 Flonase Nasal [place] NASAL 2 spr DAILY FACUNDO Administration Ibuprofen 800 mg 12/20/19 17:00 12/21/19 16:03 Motrin PO 800 mg TID-WM FACUNDO Administration - Exam General Appearance: NAD, awake alert Heart: RRR, no murmur, no gallops, no rubs, normal peripheral pulses Respiratory: CTAB, no wheezes, no rales, no ronchi, normal chest expansion, no tachypnea, normal percussion Gastrointestinal: soft, non-tender, non-distended, normal bowel sounds, no palpable masses, no hepatomegaly, no splenomegaly, no bruit Hosp A/P (1) Acute exacerbation of chronic bronchitis Code(s): J20.9 - ACUTE BRONCHITIS, UNSPECIFIED; J42 - UNSPECIFIED CHRONIC BRONCHITIS Status: Acute (2) Morbid obesity Code(s): E66.01 - MORBID (SEVERE) OBESITY DUE TO EXCESS CALORIES Status: Chronic (3) ELISABETH (obstructive sleep apnea) Code(s): G47.33 - OBSTRUCTIVE SLEEP APNEA (ADULT) (PEDIATRIC) Status: Chronic - Plan #Multiple pauses on telemetry -while sleeping -pending stress test report -cardiology onboard -asymptomatic, likely no treatment required #chest pain -atypical, improved with tylenol -changed to ibuprofen for better antiinflammatory properties compared to tylenol
[2019-12-22] MEDS: Ibuprofen 800 MG TAB PO SCH ×3 (09:18→17:55)
[2019-12-22] MEDS: Enoxaparin Sodium 40 MG/0.4 ML SYRINGE SC SCH (09:18)
[2019-12-22] MEDS: Fluticasone Propionate Nasal Spray 16 gm Bottle NASAL SCH (09:18)
[2019-12-22] MEDS: Aspirin 81 mg Enteric Coated Tablet PO SCH (09:21)
[2019-12-22] MEDS: Lisinopril 10 MG TAB PO SCH (09:44)
--- NOTE | 2019-12-22 14:07 | PDOC.HOSPP ---
- Subjective Encounter Date: 12/22/19 Encounter Time: 09:00 Subjective: no overnight events. This morning, feels well and has no complaints. Endorses reduction in cough in hospital environment as compared to work. - Objective Vital Signs & Weight: Vital Signs (12 hours) Temp Pulse Resp BP BP BP Pulse Ox 12/22/19 11:57 98.4 F 52 L 16 128/67 94 L 12/22/19 07:50 95 12/22/19 07:33 98.3 F 51 L 18 144/82 H 95 12/22/19 03:27 97.6 F 53 L 18 120/64 96 Weight Weight 377 lb 14.4 oz I&O: 12/21/19 12/22/19 12/23/19 06:59 06:59 06:59 Intake Total 940 1475 Output Total 1250 1775 Balance -310 -300 Result Diagrams: 12/19/19 12:22 12/20/19 04:03 Hospitalist ROS - Review of Systems Constitutional: denies: fever, chills, sweats, weakness, malaise, other Respiratory: denies: cough, dry, shortness of breath, hemoptysis, SOB with excertion, pleuritic pain, sputum, wheezing, other Cardiovascular: denies: chest pain, palpitations, orthopnea, paroxysmal noc. dyspnea, edema, light headedness, other Gastrointestinal: denies: nausea, vomiting, abdominal pain, diarrhea, constipation, melena, hematochezia, other Genitourinary: denies: dysuria, frequency, incontinence, hematuria, retention, other - Medication Medications: Active Medications Generic Name Dose Route Start Last Admin Trade Name Heather PRN Reason Stop Dose Admin Aspirin 81 mg 12/22/19 09:00 12/22/19 09:21 Ecotrin PO 81 mg DAILY FACUNDO Administration Enoxaparin Sodium 40 mg 12/20/19 09:00 12/22/19 09:18 Lovenox SC 40 mg 0900 FACUNDO Administration Fluticasone Propionate 0 gm 12/20/19 09:00 12/22/19 09:18 Flonase Nasal [place] NASAL 2 spr DAILY FACUNDO Administration Ibuprofen 800 mg 12/20/19 17:00 12/22/19 12:02 Motrin PO 800 mg TID- FACUNDO Administration Lisinopril 10 mg 12/22/19 09:00 12/22/19 09:44 Zestril PO 10 mg DAILY FACUNDO Administration - Exam General Appearance: NAD, awake alert Heart: RRR, no murmur, no gallops, no rubs, normal peripheral pulses Respiratory: CTAB, no wheezes, no rales, no ronchi, normal chest expansion, no tachypnea, normal percussion Gastrointestinal: soft, non-tender, non-distended, normal bowel sounds, no palpable masses, no hepatomegaly, no splenomegaly, no bruit Extremities: no edema Psychiatric: normal affect, normal behavior, A&O x 3 Hosp A/P (1) Morbid obesity Code(s): E66.01 - MORBID (SEVERE) OBESITY DUE TO EXCESS CALORIES Status: Chronic (2) ELISABETH (obstructive sleep apnea) Code(s): G47.33 - OBSTRUCTIVE SLEEP APNEA (ADULT) (PEDIATRIC) Status: Chronic (3) Allergic rhinitis with postnasal drip Code(s): J30.9 - ALLERGIC RHINITIS, UNSPECIFIED; R09.82 - POSTNASAL DRIP Status: Acute - Plan #chest pain -nuclear stress showing small focal deficit that is old; EF 46% (reduced systolic function) -per cardiology, NPO midnight for possible cath tomorrow #SA ruby pause -while sleeping -pending stress test report -cardiology onboard -asymptomatic; on telemetry pause interval not complete multiples regular R-R; likely sinus ruby pause; likely no treatment required; deferring to cardiology #Allergic rhinitis with postnasal drip resuling in cough -patient endorses symptoms mostly at work, improvement in hospital, having had allergen testing that was positive for plants; has no sputum production, inconsistent with bronchitis -continue flonase -educate patient regarding avoidance and air purifiers ELOS: 1-2 midnights
[2019-12-22] MEDS: Atorvastatin Calcium 40 MG TAB PO SCH (20:23)
[2019-12-23 05:04] LABS: Cardiac Risk 3.8 (Less than 4.5)
[2019-12-23] MEDS: Ibuprofen 800 MG TAB PO SCH ×3 (08:28→17:42)
[2019-12-23] MEDS: Aspirin 81 mg Enteric Coated Tablet PO SCH (08:28)
[2019-12-23] MEDS: Fluticasone Propionate Nasal Spray 16 gm Bottle NASAL SCH (08:29)
[2019-12-23] MEDS: Lisinopril 10 MG TAB PO SCH (08:29)
[2019-12-23] MEDS: Enoxaparin Sodium 40 MG/0.4 ML SYRINGE SC SCH (12:48)
--- NOTE | 2019-12-23 17:14 | PDOC.CPN ---
- Subjective Date: 12/23/19 Time: 17:12 Interval history: No new issues. Talking to him he states he has felt tiored and fatigued for the last 3 weeks. approximately. His HR has been in the low 40's and has had several sinus pauses at 2.5 secs. - Review of Systems General: reports: fatigue. denies: fever/chills, weight/appetite/sleep changes , night sweats Respiratory: denies: cough, congestion, shortness of breath, exercise intolerance Cardiovascular: denies: chest pain, palpitation, edema, paroxysmal nocturnal dyspnea, orthopnea Gastrointestinal: denies: nausea, vomiting, diarrhea, constipation, abd pain, GI bleeding Musculoskeletal: denies: pain, tenderness, stiffness, swelling, arthritis/ arthralgias Neurological: denies: numbness, syncope, seizure, weakness - Objective Allergies/Adverse Reactions: Allergies Allergy/AdvReac Type Severity Reaction Status Date / Time No Known Allergies Allergy Verified 12/19/19 15:54 Visit Medications: Current Medications Aspirin (Ecotrin) 81 mg PO DAILY [facility] Last Admin: 12/23/19 08:28 Dose: 81 mg Atorvastatin Calcium (Lipitor) 40 mg PO HS [facility] Last Admin: 12/22/19 20:23 Dose: 40 mg Enoxaparin Sodium (Lovenox) 40 mg SC 0900 [facility] Last Admin: 12/23/19 12:48 Dose: 40 mg Fluticasone Propionate (Flonase Nasal [place]) 0 gm NASAL DAILY [facility] Last Admin: 12/23/19 08:29 Dose: 2 spr Ibuprofen (Motrin) 800 mg PO TID-WM [facility] Last Admin: 12/23/19 11:24 Dose: 800 mg Lisinopril (Zestril) 10 mg PO DAILY [facility] Last Admin: 12/23/19 08:29 Dose: 10 mg Ondansetron HCl (Zofran) 4 mg IVP Q6H PRN PRN Reason: Nausea/Vomiting Vital Signs & Weight: Vital Signs Temp Pulse Resp BP BP BP Pulse Ox 12/23/19 15:51 98.1 F 51 L 18 134/65 93 L 12/23/19 11:20 97.7 F 47 L 18 117/56 L 94 L 12/23/19 08:29 138/75 12/23/19 07:25 96.5 F L 52 L 14 130/73 95 Weight 375 lb 14.4 oz - Physical Exam General: alert & oriented x3 HEENT: mucus membranes moist Neck: supple neck Cardiac: regular rate and rhythm Lungs: clear to auscultation Neuro: grossly intact Abdomen: active bowel sounds Extremities: no edema Skin: clear Musculoskeletal: no pain - Labs Result Diagrams: 12/19/19 12:22 12/20/19 04:03 Troponin/CKMB CK-MB (CK-2) 5.6 ng/mL (0-6.6) 12/19/19 12:22 Troponin I 0.108 ng/mL (< 0.028) H 12/19/19 19:24 - Telemetry Sinus rhythms and dysrhythmias: sinus bradycardia (< 50 bpm) Supraventricular conduction: other (2.5 seconds pauses, several times. HR at 40. ) - Assessment/Plan Assessment/Plan: 1. Chest miguel, atypical. 2. Normal coronaries in 2014 3. besity 4. OSAusing CPAP. 5. Symptyomatic bradycardia. PLAN: - Highly suspicious of AV node dysfunction. - May need a PPM. - Will consult EP for their opinion on possibly needing PPM. I would think he will benefit as he is symptomatic and bradycardic.
--- NOTE | 2019-12-23 20:31 | PDOC.HOSPP ---
- Subjective Encounter Date: 12/23/19 Encounter Time: 08:00 Subjective: overnight, had additional pauses including this morning when the patient was awake, which is a change compared to previous days. Continues to be bradycardic and complain of fatigue. has no other complaints. - Objective Vital Signs & Weight: Vital Signs (12 hours) Temp Pulse Resp BP Pulse Ox 12/23/19 15:51 98.1 F 51 L 18 134/65 93 L 12/23/19 11:20 97.7 F 47 L 18 117/56 L 94 L Weight Weight 375 lb 14.4 oz I&O: 12/22/19 12/23/19 12/24/19 06:59 06:59 06:59 Intake Total 1475 1920 960 Output Total 1775 1200 850 Balance -300 720 110 Result Diagrams: 12/19/19 12:22 12/20/19 04:03 Hospitalist ROS - Review of Systems Constitutional: denies: fever, chills, sweats, weakness, malaise, other Respiratory: denies: cough, dry, shortness of breath, hemoptysis, SOB with excertion, pleuritic pain, sputum, wheezing, other Cardiovascular: denies: chest pain, palpitations, orthopnea, paroxysmal noc. dyspnea, edema, light headedness, other Gastrointestinal: denies: nausea, vomiting, abdominal pain, diarrhea, constipation, melena, hematochezia, other - Medication Medications: Active Medications Generic Name Dose Route Start Last Admin Trade Name Freq PRN Reason Stop Dose Admin Aspirin 81 mg 12/22/19 09:00 12/23/19 08:28 Ecotrin PO 81 mg DAILY FACUNDO Administration Atorvastatin Calcium 40 mg 12/22/19 21:00 12/22/19 20:23 Lipitor PO 40 mg HS FACUNDO Administration Enoxaparin Sodium 40 mg 12/20/19 09:00 12/23/19 12:48 Lovenox SC 40 mg 0900 FACUNDO Administration Fluticasone Propionate 0 gm 12/20/19 09:00 12/23/19 08:29 Flonase Nasal [place] NASAL 2 spr DAILY FACUNDO Administration Ibuprofen 800 mg 12/20/19 17:00 12/23/19 17:42 Motrin PO 800 mg TID-WM FACUNDO Administration Lisinopril 10 mg 12/22/19 09:00 12/23/19 08:29 Zestril PO 10 mg DAILY FACUNDO Administration - Exam General Appearance: NAD, awake alert Heart: no murmur, no gallops, no rubs Heart - other findings: bradycardic. additional sinus pause episodes on telemetry Gastrointestinal: soft, non-tender, non-distended, normal bowel sounds Extremities: no edema Psychiatric: normal affect, normal behavior, A&O x 3 Hosp A/P (1) Symptomatic bradycardia Code(s): R00.1 - BRADYCARDIA, UNSPECIFIED Status: Acute (2) Sinus pause Code(s): I45.5 - OTHER SPECIFIED HEART BLOCK Status: Acute (3) Morbid obesity Code(s): E66.01 - MORBID (SEVERE) OBESITY DUE TO EXCESS CALORIES Status: Chronic (4) ELISABETH (obstructive sleep apnea) Code(s): G47.33 - OBSTRUCTIVE SLEEP APNEA (ADULT) (PEDIATRIC) Status: Chronic (5) Allergic rhinitis with postnasal drip Code(s): J30.9 - ALLERGIC RHINITIS, UNSPECIFIED; R09.82 - POSTNASAL DRIP Status: Acute - Plan #symptomatic bradycardia #sinus pause -per cardiology, bradycardia and pauses related to fatigue -consult EP to assess pacemaker placement #Reduced systolic function -nuclear stress test showing EF 46%, local hypokinesis; euvolemic -continue current regimen #Allergic rhinitis with postnasal drip resuling in cough -patient endorses symptoms mostly at work, improvement in hospital, having had allergen testing that was positive for plants; has no sputum production, inconsistent with bronchitis -continue flonase -educate patient regarding avoidance and air purifiers Disposition: considering symptomatic despite previous interventions, bradycardia may be etiology and may require procedure. Therefore, transitioning to inpatient status ELOS: 1-2 midnights
[2019-12-23] MEDS: Atorvastatin Calcium 40 MG TAB PO SCH (21:12)
--- NOTE | 2019-12-23 21:22 | CON ---
DATE OF CONSULTATION: 12/23/2019 REASON FOR CONSULTATION: Bradycardia and pacemaker consideration. HISTORY OF PRESENT ILLNESS: Mr. Esparza is a 49-year-old gentleman who presented with recurrent chest discomfort. He had undergone initial cardiac evaluation for similar issue in 2014, at which point a left heart catheterization was performed which revealed known coronary artery disease. In 2018, he had a repeat episode of atypical chest pain prompting a Cardiolite stress test which was not suggestive of ischemia. Mr. Esparza reports he was in his usual state of health, feeling well, and began to have this left-sided chest discomfort once again that persisted for 5 days and he also had pronounced fatigue. He denies any heart racing, palpitations, syncope, near syncope, stroke, or stroke-like symptoms. REVIEW OF SYSTEMS: As per HPI. Otherwise, 12-point review of systems is negative. PAST MEDICAL HISTORY: 1. Sleep apnea. 2. Dyslipidemia. 3. Morbid obesity. SOCIAL HISTORY: Nonsmoker. Denies alcohol or illicit drug use. ALLERGIES: NO KNOWN DRUG ALLERGIES. MEDICATIONS: Home medication of aspirin. FAMILY HISTORY: Positive for coronary artery disease with multiple family members. OBJECTIVE: VITAL SIGNS: 97.7, pulse 42, respirations 18, oxygen is 94% on room air, blood pressure 117/56. GENERAL: The patient is alert and oriented. Speech is clear. Affect is appropriate. He is morbidly obese. He is in no apparent distress at the time of the exam. NECK: Large, supple, nontender. Difficult to assess for JVD. Trachea is midline. HEART: Heart rate is slow, crisp S1, S2. PMI is minimally palpable due to habitus. LUNGS: Clear to auscultation. Diminished in the bases. Respirations are even and unlabored. EXTREMITIES: Warm and dry to touch. He is without clubbing, cyanosis, or edema. NEUROLOGIC: Grossly intact. Nonfocal. DATABASE: Telemetry and EKG show sinus bradycardia in the 40s. Echocardiogram, 11/20/2019, ejection fraction 50% to 55%. 12/20/2019, stress test performed, not suggestive for ischemia. IMPRESSION: 1. Symptomatic bradycardia while awake with associated fatigue. 2. Structurally normal heart with a recent negative stress test and a preserved ejection fraction of 50% to 55%. 3. Atypical chest pain. 4. Morbid obesity. 5. Obstructive sleep apnea, treated with CPAP. PLAN AND RECOMMENDATIONS: Mr. Esparza is experiencing symptomatic bradycardia and sinus node dysfunction. He is not on any medications that would be exacerbating this condition or causing his bradycardia. He has clearly associated fatigue and symptoms with his bradycardia. His sleep apnea is appropriately treated with CPAP. With this in mind, my recommendation would be for permanent dual-chamber pacemaker implant. We discussed the risks, benefits, and alternatives including pain, bruising, swelling, infection at the pacemaker implant site as well as device malfunction, lead dislodgement, and possible need for replacement. The patient voices understanding. We will keep him n.p.o. after midnight and begin scheduling arrangements. Thank you for allowing me to participate in the care of this patient. Job ID: [id number]
[2019-12-24 05:05] LABS: Anion Gap 10 mmol/L (10-20); BUN (Urea Nitrogen) 17 mg/dL (8.9-20.6); Calc. Creatinine Clearance 245 mL/min (70-130); Calcium 8.7 mg/dL (7.8-10.44); Carbon Dioxide 28 mmol/L (22-29); Chloride 105 mmol/L (98-107); Estimated GFR-MDRD Greater than 90; Glucose 91 mg/dL (70-105); Potassium 4.1 mmol/L (3.5-5.1); Sodium 139 mmol/L (136-145)
[2019-12-24 05:44] LABS: #Eosinphils 0.2 thou/uL (0.0-0.7); #Lymphocytes 1.6 thou/uL (1.20-3.40); #Monocytes 0.6 thou/uL (0.11-0.59); #Neutrophils 3.5 thou/uL (1.40-6.50); %Basophils 0.7 % (0.0-1.0); %Lymphocytes 26.2 % (21.0-51.0); %Monocytes 9.6 % (0.0-10.0); %Neutrophils 59.5 % (42.0-75.0); Hemoglobin 13.7 g/dL (14.0-18.0); Mean Corpuscular HGB CONC 33.2 g/dL (32.0-36.0); Mean Corpuscular Hemoglobin 32.6 pg (27.0-31.0); Mean Corpuscular Volume 98.4 fL (78.0-98.0); Mean Platelet Volume 9.2 fL (7.4-10.4); Platelet Count 115 thou/uL (130-400); Platelet Morphology Comment Appears Decreased; RBC Distribution Width 12.8 % (11.5-14.5); Red Blood Cell (RBC) Count 4.21 mill/uL (4.70-6.10); White Blood Cell (WBC) Count 5.9 thou/uL (4.8-10.8)
[2019-12-24] MEDS: Aspirin 81 mg Enteric Coated Tablet PO SCH (07:42)
[2019-12-24] MEDS: Lisinopril 10 MG TAB PO SCH (07:43)
[2019-12-24] MEDS ORDERED: Iopamidol 370 76% 50 ML VIAL FS ONE (09:51)
[2019-12-24] MEDS ORDERED: Midazolam HCl 2 mg/2 ml Vial ONE (10:08)
[2019-12-24] MEDS ORDERED: Propofol 1,000 MG/100 ML VIAL IV ONE (10:08)
[2019-12-24] MEDS ORDERED: Fentanyl 100 MCG/2 ML VIAL ONE (10:08)
[2019-12-24] MEDS ORDERED: Famotidine/PF 20 mg/2ml Vial ONE (10:08)
[2019-12-24] MEDS ORDERED: Lidocaine 1% PF 5 ML VIAL ONE (11:53)
[2019-12-24] MEDS ORDERED: Metoclopramide HCl 10 MG/2 ML VIAL ONE (11:53)
[2019-12-24] MEDS ORDERED: Ondansetron PF 4 MG/2 ML Vial ONE (11:53)
[2019-12-24] MEDS ORDERED: PHENYLEPHRINE-NS 100 MCG/ML 10 ML SYRINGE ONE (11:53)
[2019-12-24] MEDS ORDERED: Gentamicin 80 MG/2 ML VIAL ONE (12:54)
[2019-12-24] MEDS ORDERED: Promethazine HCl 25 MG/ML VIAL SLOW IVP PRN (13:17)
[2019-12-24] MEDS ORDERED: Ondansetron HCl/PF 4 MG/2 ML Vial IVP PRN (13:17)
[2019-12-24] MEDS ORDERED: Promethazine HCl 25 MG/ML VIAL IM PRN (13:17)
--- NOTE | 2019-12-24 13:59 | RAD ---
PORTABLE CHEST: 12/24/19 INDICATIONS: Pacemaker placement. COMPARISON: 12/19/19. FINDINGS/IMPRESSION: Cardiomegaly. Soft tissue attenuation limits detail. Dural lead pacemaker has been placed via the lef t subclavian vein and leads appear adequately positioned. There is cardiomegaly, mild vascular engorg ement which is unchanged from prior exam. POS: AGW
--- NOTE | 2019-12-24 17:07 | PDOC.HOSPP ---
- Subjective Encounter Date: 12/24/19 Encounter Time: 09:00 Subjective: no overnight events. Bradycardic episodes more diffuse through the day and complains of fatigue that is not improving. Pending pacemaker placement per cardiology - Objective Vital Signs & Weight: Vital Signs (12 hours) Temp Pulse Resp BP BP Pulse Ox 12/24/19 07:43 122/72 12/24/19 07:40 98.4 F 48 L 15 122/72 96 12/24/19 07:37 98.4 F 48 L 15 122/72 96 Weight Weight 380 lb 14.4 oz I&O: 12/23/19 12/24/19 12/25/19 06:59 06:59 06:59 Intake Total 1920 1800 Output Total 1200 850 Balance 720 950 Result Diagrams: 12/24/19 04:20 12/24/19 04:20 Hospitalist ROS - Review of Systems Constitutional: reports: malaise. denies: fever, chills, sweats, weakness, other Respiratory: denies: cough, dry, shortness of breath, hemoptysis, SOB with excertion, pleuritic pain, sputum, wheezing, other Cardiovascular: denies: chest pain, palpitations, orthopnea, paroxysmal noc. dyspnea, edema, light headedness, other Gastrointestinal: denies: nausea, vomiting, abdominal pain, diarrhea, constipation, melena, hematochezia, other - Medication Medications: Active Medications Generic Name Dose Route Start Last Admin Trade Name Freq PRN Reason Stop Dose Admin Aspirin 81 mg 12/22/19 09:00 12/24/19 07:42 Ecotrin PO 81 mg DAILY FACUNDO Administration Atorvastatin Calcium 40 mg 12/22/19 21:00 12/23/19 21:12 Lipitor PO 40 mg HS FACUNDO Administration Enoxaparin Sodium 40 mg 12/20/19 09:00 12/23/19 12:48 Lovenox SC 40 mg 0900 FACUNDO Administration Fluticasone Propionate 0 gm 12/20/19 09:00 12/23/19 08:29 Flonase Nasal [place] 2 spr DAILY FACUNDO Administration Ibuprofen 800 mg 12/20/19 17:00 12/23/19 17:42 Motrin PO 800 mg TID-WM FACUNDO Administration Lisinopril 10 mg 12/22/19 09:00 12/24/19 07:43 Zestril PO 10 mg DAILY FACUNDO Administration - Exam General Appearance: NAD, awake alert Heart: no murmur, no gallops, no rubs, normal peripheral pulses Heart - other findings: bradycardic Respiratory: CTAB, no wheezes, no rales, no ronchi, normal chest expansion, no tachypnea, normal percussion Gastrointestinal: soft, non-tender, non-distended, normal bowel sounds, no palpable masses Extremities: no edema Psychiatric: normal affect, normal behavior, A&O x 3 Hosp A/P (1) Symptomatic bradycardia Code(s): R00.1 - BRADYCARDIA, UNSPECIFIED Status: Acute (2) Sinus pause Code(s): I45.5 - OTHER SPECIFIED HEART BLOCK Status: Acute (3) Morbid obesity Code(s): E66.01 - MORBID (SEVERE) OBESITY DUE TO EXCESS CALORIES Status: Chronic (4) ELISABETH (obstructive sleep apnea) Code(s): G47.33 - OBSTRUCTIVE SLEEP APNEA (ADULT) (PEDIATRIC) Status: Chronic (5) Allergic rhinitis with postnasal drip Code(s): J30.9 - ALLERGIC RHINITIS, UNSPECIFIED; R09.82 - POSTNASAL DRIP Status: Acute - Plan #symptomatic bradycardia #sinus pause -pending pacemaker placement per cardiology #Reduced systolic function -nuclear stress test showing EF 46%, local hypokinesis; euvolemic -continue current regimen #Allergic rhinitis with postnasal drip resuling in cough -patient endorses symptoms mostly at work, improvement in hospital, having had allergen testing that was positive for plants; has no sputum production, inconsistent with bronchitis -continue flonase -educate patient regarding avoidance and air purifiers Disposition: considering symptomatic despite previous interventions, bradycardia may be etiology and may require procedure. Therefore, transitioning to inpatient status ELOS: 1 midnights
--- NOTE | 2019-12-24 18:05 | PDOC.CPN ---
- Subjective Date: 12/24/19 Time: 18:03 Interval history: He had his PPM placed. Doing well. - Review of Systems General: denies: fever/chills, weight/appetite/sleep changes, night sweats, fatigue Respiratory: denies: cough, congestion, shortness of breath, exercise intolerance Cardiovascular: denies: chest pain, palpitation, edema, paroxysmal nocturnal dyspnea, orthopnea Gastrointestinal: denies: nausea, vomiting, diarrhea, constipation, abd pain, GI bleeding Musculoskeletal: denies: pain, tenderness, stiffness, swelling, arthritis/ arthralgias Neurological: denies: numbness, syncope, seizure, weakness - Objective Allergies/Adverse Reactions: Allergies Allergy/AdvReac Type Severity Reaction Status Date / Time No Known Allergies Allergy Verified 12/19/19 15:54 Visit Medications: Current Medications Aspirin (Ecotrin) 81 mg PO DAILY [facility] Last Admin: 12/24/19 07:42 Dose: 81 mg Atorvastatin Calcium (Lipitor) 40 mg PO HS [facility] Last Admin: 12/23/19 21:12 Dose: 40 mg Enoxaparin Sodium (Lovenox) 40 mg SC 0900 [facility] Last Admin: 12/23/19 12:48 Dose: 40 mg Fluticasone Propionate (Flonase Nasal [place]) 0 gm NASAL DAILY [facility] Last Admin: 12/23/19 08:29 Dose: 2 spr Ibuprofen (Motrin) 800 mg PO TID-[facility] Last Admin: 12/23/19 17:42 Dose: 800 mg Lisinopril (Zestril) 10 mg PO DAILY [facility] Last Admin: 12/24/19 07:43 Dose: 10 mg Ondansetron HCl (Zofran) 4 mg IVP Q6H PRN PRN Reason: Nausea/Vomiting Vital Signs & Weight: Vital Signs Temp Pulse Resp BP BP Pulse Ox 12/24/19 07:43 122/72 12/24/19 07:40 98.4 F 48 L 15 122/72 96 12/24/19 07:37 98.4 F 48 L 15 122/72 96 Weight 380 lb 14.4 oz - Physical Exam General: alert & oriented x3 HEENT: mucus membranes moist Neck: supple neck Cardiac: regular rate and rhythm Lungs: clear to auscultation Neuro: grossly intact Abdomen: active bowel sounds Extremities: no edema Skin: clear Musculoskeletal: no pain - Labs Result Diagrams: 12/24/19 04:20 12/24/19 04:20 Troponin/CKMB CK-MB (CK-2) 5.6 ng/mL (0-6.6) 12/19/19 12:22 Troponin I 0.108 ng/mL (< 0.028) H 12/19/19 19:24 - Telemetry Sinus rhythms and dysrhythmias: sinus rhythm - Assessment/Plan Assessment/Plan: 1. Chest pain, atypical. 2. Normal coronaries in 2014 3. Obesity 4. ELISABETH using CPAP. 5. Symptomatic bradycardia. PLAN: - S/P PPM placement. - Doing better now. - May discharge in AM if he remains stable.
[2019-12-24] MEDS: Ibuprofen 800 MG TAB PO SCH ×2 (18:44→18:49)
[2019-12-24] MEDS: Fluticasone Propionate Nasal Spray 16 gm Bottle NASAL SCH (18:45)
[2019-12-24] MEDS: Enoxaparin Sodium 40 MG/0.4 ML SYRINGE SC SCH (18:45)
[2019-12-24] MEDS: Atorvastatin Calcium 40 MG TAB PO SCH (20:35)
[2019-12-25 04:37] LABS: Anion Gap 12 mmol/L (10-20); BUN (Urea Nitrogen) 16 mg/dL (8.9-20.6); Calc. Creatinine Clearance 276 mL/min (70-130); Calcium 8.5 mg/dL (7.8-10.44); Carbon Dioxide 25 mmol/L (22-29); Chloride 106 mmol/L (98-107); Estimated GFR-MDRD Greater than 90; Glucose 91 mg/dL (70-105); Magnesium 2.2 mg/dL (1.6-2.6); Sodium 139 mmol/L (136-145)
[2019-12-25] MEDS: Aspirin 81 mg Enteric Coated Tablet PO SCH (08:48)
[2019-12-25] MEDS: Lisinopril 10 MG TAB PO SCH (08:48)
[2019-12-25] MEDS: Ibuprofen 800 MG TAB PO SCH ×2 (08:48→11:28)
[2019-12-25] MEDS: Enoxaparin Sodium 40 MG/0.4 ML SYRINGE SC SCH (08:49)
[2019-12-25] MEDS: Fluticasone Propionate Nasal Spray 16 gm Bottle NASAL SCH (08:50)
[2019-12-25 11:27] VITALS: BP 133/72; TEMP 98.7
--- NOTE | 2019-12-25 13:08 | PDOC.EP ---
- Subjective Date: 12/25/19 Time: 13:06 Interval History: follow-up after pacemaker implant for symptomatic bradycardia. Patient feels well today he is having some mild tenderness at his implant site but reports his energy levels have already improved and he is back to his normal sleep schedule which is important to him and he reports was altered by his low heart rates. he feels ready to discharge home. he denies any cardiac concerns or complaints today - Review of Systems Constitutional: denies: chills, fever, malaise, sweats, weakness, other Respiratory: denies: cough, dry, hemoptysis, pleuritic pain, shortness of breath , SOB with excertion, sputum, wheezing, other Cardiology: denies: chest pain, edema, heart racing, light headedness, paroxysmal noc. dyspnea, orthopnea, palpitations, passing out, pleuritic pain, pressure, swelling, other Gastrointestinal: denies: abdominal pain, constipation, diarrhea, hematochezia, melena, nausea, vomitting, other - Objective Allergies/Adverse Reactions: Allergies Allergy/AdvReac Type Severity Reaction Status Date / Time No Known Allergies Allergy Verified 12/19/19 15:54 Current Medications Aspirin (Ecotrin) 81 mg PO DAILY [facility] Last Admin: 12/25/19 08:48 Dose: 81 mg Atorvastatin Calcium (Lipitor) 40 mg PO HS [facility] Last Admin: 12/24/19 20:35 Dose: 40 mg Enoxaparin Sodium (Lovenox) 40 mg SC 0900 [facility] Last Admin: 12/25/19 08:49 Dose: 40 mg Fluticasone Propionate (Flonase Nasal [place]) 0 gm NASAL DAILY [facility] Last Admin: 12/25/19 08:50 Dose: 2 spr Ibuprofen (Motrin) 800 mg PO TID-[facility] Last Admin: 12/25/19 11:28 Dose: 800 mg Lisinopril (Zestril) 10 mg PO DAILY [facility] Last Admin: 12/25/19 08:48 Dose: 10 mg Ondansetron HCl (Zofran) 4 mg IVP Q6H PRN PRN Reason: Nausea/Vomiting Vital Signs & Weight: Vital Signs Temp Pulse Resp BP BP Pulse Ox 12/25/19 11:22 98.7 F 58 L 18 133/72 95 12/25/19 07:26 99.2 F 59 L 18 114/67 93 L 12/25/19 03:35 96.6 F L 71 14 103/52 L 97 Weight 13.136 oz I/O: I/O 12/24/19 12/25/19 12/26/19 06:59 06:59 06:59 Intake Total 1800 1200 Output Total 850 1650 Balance 950 -450 - Physical Exam General: alert & oriented x3, appears well, no apparent distress, speech clear, affect appropriate HEENT: mucus membranes moist, normocephaly Neck: supple neck, midline trachea, no lymphadenopathy Cardiology: PMI nondisplaced Lungs: clear to auscultation, no wheeze, rales, rhonchi Neurology: cranial nerve 2-12 intact, grossly intact, no lateralizing findings Abdomen: unremarkable, active bowel sounds, no pulsations/bruits Extremities: dry, strong pulses, warm Skin: device site stable w/o swelling, left sided device, swelling. negative: bruising, drainage, hematoma - Labs Result Diagrams: 12/24/19 04:20 12/25/19 03:58 - EKG Interpretation EKG Method: Telemetry EKG shows: Sinus rhythm (demand pacing seen) - Device Device: dual, pacemaker Device Result: Medtronic - Assessment/Plan Assessment/Plan: 1. symptomatic bradycardia 2. status post dual chamber Medtronic pacemaker implant 12/24/2019 Postoperative Ancef and Keflex was ordered but was not started. order given for Ancef 1 g now and oral Keflex to start as previously ordered. Keflex 500mg PO QID x 7 days upon discharge. Wound check in 2 weeks and final device check in 3 months. At that time if all is well we will sign out cardiology unless additional EP management is needed. PPM check today is stable. CXR post implant is stable okay for discharge.
[2019-12-25] MEDS ORDERED: CEFAZOLIN 1 GM in Sodium Chloride 0.9% 100 ML IVPB SCH (13:27)
--- NOTE | 2019-12-25 13:29 | PDOC.CPN ---
- Subjective Date: 12/25/19 Time: 12:30 Interval history: Doing well. Mild soreness around pacer site. - Review of Systems General: denies: fever/chills, weight/appetite/sleep changes, night sweats, fatigue Respiratory: denies: cough, congestion, shortness of breath, exercise intolerance Cardiovascular: denies: chest pain, palpitation, edema, paroxysmal nocturnal dyspnea, orthopnea Gastrointestinal: denies: nausea, vomiting, diarrhea, constipation, abd pain, GI bleeding Musculoskeletal: reports: pain. denies: tenderness, stiffness, swelling, arthritis/arthralgias Neurological: denies: numbness, syncope, seizure, weakness - Objective Allergies/Adverse Reactions: Allergies Allergy/AdvReac Type Severity Reaction Status Date / Time No Known Allergies Allergy Verified 12/19/19 15:54 Visit Medications: Current Medications Aspirin (Ecotrin) 81 mg PO DAILY [facility] Last Admin: 12/25/19 08:48 Dose: 81 mg Atorvastatin Calcium (Lipitor) 40 mg PO HS [facility] Last Admin: 12/24/19 20:35 Dose: 40 mg Enoxaparin Sodium (Lovenox) 40 mg SC 0900 [facility] Last Admin: 12/25/19 08:49 Dose: 40 mg Fluticasone Propionate (Flonase Nasal [place]) 0 gm NASAL DAILY [facility] Last Admin: 12/25/19 08:50 Dose: 2 spr Ibuprofen (Motrin) 800 mg PO TID-[facility] Last Admin: 12/25/19 11:28 Dose: 800 mg Lisinopril (Zestril) 10 mg PO DAILY [facility] Last Admin: 12/25/19 08:48 Dose: 10 mg Ondansetron HCl (Zofran) 4 mg IVP Q6H PRN PRN Reason: Nausea/Vomiting Vital Signs & Weight: Vital Signs Temp Pulse Resp BP BP Pulse Ox 12/25/19 11:22 98.7 F 58 L 18 133/72 95 12/25/19 07:26 99.2 F 59 L 18 114/67 93 L 12/25/19 03:35 96.6 F L 71 14 103/52 L 97 Weight 13.136 oz - Physical Exam General: alert & oriented x3 HEENT: mucus membranes moist Neck: supple neck Cardiac: regular rate and rhythm Lungs: normal breath sounds Neuro: grossly intact Abdomen: active bowel sounds Extremities: no edema Skin: clear Musculoskeletal: no pain - Labs Result Diagrams: 12/24/19 04:20 12/25/19 03:58 Troponin/CKMB CK-MB (CK-2) 5.6 ng/mL (0-6.6) 12/19/19 12:22 Troponin I 0.108 ng/mL (< 0.028) H 12/19/19 19:24 - Telemetry Sinus rhythms and dysrhythmias: sinus rhythm - Assessment/Plan Assessment/Plan: 1. Chest pain, atypical. 2. Normal coronaries in 2014 3. Obesity 4. ELISABETH using CPAP. 5. Symptomatic bradycardia. PLAN: - S/P PPM placement. - Already feeling better with better sleep cycle. - May discharge home. - Follow up in the office in 1 month.
[2019-12-25] MEDS ORDERED: ceFAZolin 1 GM/D5W 1 GM in Premix Bag 1 BAG IVPB SCH (13:45)
[2019-12-25] MEDS ORDERED: Cephalexin 250 MG CAP PO SCH (18:00)
--- NOTE | 2019-12-26 13:22 | DIS ---
DATE OF ADMISSION: 12/19/2019 DATE OF DISCHARGE: 12/25/2019 HOSPITAL COURSE: Mr. Esparza is a 49-year-old male with medical history of ELISABETH (on CPAP at home) and morbid obesity, who presented with fatigue and chest pain. Cardiology was consulted after the patient was found to have sinoatrial ruby pauses initially while at sleep, but afterwards during inpatient stay, was found to be present, also during his awake hours. Per Cardiology, these pauses as well as the patient's bradycardia were associated with this fatigue. The patient received pacemaker. He tolerated the procedure well and on the day of discharge endorsed feeling well. He was discharged on Keflex 500 mg q.i.d. for 7 days with followup appointments with Cardiology. MEDICATIONS: New medications; 1. Aspirin. 2. Atorvastatin 40 mg at bedtime. 3. Ibuprofen 800 mg t.i.d. for 3 days p.r.n. wound pain. 4. Lisinopril. 5. Keflex. 6. Flonase nasal spray. Continued medication; 1. Oxymetazoline nasal spray. Job ID: [id number]
--- NOTE | 2019-12-27 08:00 | PQF ---
JANY GONSALEZ FERNANDO [id number] CLINICAL DOCUMENTATION CLARIFICATION FORM: POST DISCHARGE Addendum to original discharge summary date: ____ Late entry note date: __ DATE: 12/27/2019 ATTN: Matty Miles Please exercise your independent, professional judgment in responding to the clarification form. Clinical indicators are provided on the bottom of this form for your review Please check appropriate box(s): AMI TYPE: [ ] NSTEMI (NH type I) [ ] NSTEMI due to Demand Ischemia (AMI Type II) [ ] Demand Ischemia without NH [ ] STEMI (please also specify site and arterysee below) If STEMI, SITE:[ ] Anterior [ ] Apical [ ] Lateral [ ] Inferior [ ] Posterior [ ] Q Wave [ ] Septal [ ] Unable to Determine [ ] Acute Coronary Syndrome (ACS) without Acute NH meaning Unstable Angina [ ] Atypical Chest pain [ ] Other [ ] Other diagnosis [ ] Unable to determine In addition, please specify: Present on Admission (POA): [ ] Yes [ ] No [ ] Unable to determine CLINICAL INDICATORS - SIGNS / SYMPTOMS / LABS Laboratory 12/18 CK-MB 5.6, Troponin 0.135; 0.105; 0.108 Vital signs 12/18 BP 123/96, Pulse 45, Rsp 18, Temp 98.5 EKG 12/18 Possible complete RBB. No ST segment elevation. ST wave inversion. ED notes 7 12/18 Troponin indeterminately elevated Consult p2 12/22 Atypica; chest pain Consult p2 12/22 experiencing symptomatic bradycardia and sins node dysfunction RISKS: ED notes 7 12/18 high cholesterol Consult p1 12/22 Dyslipidemia Consult p1 12/22 Morbid obesity Consult p2 12/22 Bradycardia Consult p2 12/22 ELISABETH Consult p2 12/22 Sinus node dysfunction Consult p2 12/22 Family history of CAD TREATMENTS: MAR 12/18 Aspirin 40 mg oral MAR 12/19 Lexiscan 0.5 mg oral MAR 12/21 Lisinopril 10 mg oral TTE 12/19 Dual pacemaker 12/23 Dr Dewey Cox Cardiology Consult 12/22 Dewey Roth EKG 12/18 (This form is maintained as a part of the permanent medical record) 2014 [employer] All Rights Reserved Anabela [email or web address]
== END 2019-12-25 15:20 | disposition home or self-care (01) | DRG 243 ==
LOC: ERS 11:49 → OBSVTOIN 14:28 → 2NO 14:28
PROVIDERS: ADMIT Internal Medicine; ATTEND Internal Medicine
PROC: 0JH606Z Insertion of Pacemaker, Dual Chamber into Chest Subcutaneous Tissue and Fascia, Open Approach (ICD-10-PCS; principal; 2019-12-24)
PROC: 02HK3JZ Insertion of Pacemaker Lead into Right Ventricle, Percutaneous Approach (ICD-10-PCS; 2019-12-24)
PROC: 02H63JZ Insertion of Pacemaker Lead into Right Atrium, Percutaneous Approach (ICD-10-PCS; 2019-12-24)
PROC: 5A09357 Assistance with Respiratory Ventilation, Less than 24 Consecutive Hours, Continuous Positive Airway Pressure (ICD-10-PCS; 2019-12-25)
DX: I49.5 Sick sinus syndrome (principal); Z68.43 Body mass index [BMI] 50.0-59.9, adult; I51.89 Other ill-defined heart diseases; I45.5 Other specified heart block; E66.01 Morbid (severe) obesity due to excess calories; E78.00 Pure hypercholesterolemia, unspecified; G47.33 Obstructive sleep apnea (adult) (pediatric); J20.9 Acute bronchitis, unspecified; J42 Unspecified chronic bronchitis; E78.5 Hyperlipidemia, unspecified; J30.89 Other allergic rhinitis; R07.89 Other chest pain; Z82.49 Family history of ischemic heart disease and other diseases of the circulatory system; Z79.899 Other long term (current) drug therapy
CPT/HCPCS: 33208; 36005; 36415; 71045; 71046; 75820; 76942; 78452; 80048; 80053; 80061; 82550; 82553; 83735; 84443; 84484; 85025; 86803; 87633; 93005; 93017; 93306; A9500; C1785; C1898; J0690; J1580; J1650; J1885; J2001; J2250; J2405; J2704; J2765; J2785; J3010; Q9967; S0028

== ENCOUNTER 2020-02-12 11:07 | Emergency (ER) | payer OTHER ==
[~2020-02-12 11:07] MED LIST: Iopamidol-370 76% 500 ML 1 ML ONE
[2020-02-12] MEDS ORDERED: Acetaminophen 500 MG TAB ONE (12:16)
[2020-02-12 12:36] LABS: #Lymphocytes 1.2 thou/uL (1.20-3.40); #Monocytes 0.7 thou/uL (0.11-0.59); #Neutrophils 2.9 thou/uL (1.40-6.50); %Basophils 0.6 % (0.0-1.0); %Eosinophils 0.6 % (0.0-10.0); %Lymphocytes 25.3 % (21.0-51.0); %Monocytes 13.4 % (0.0-10.0); %Neutrophils 60.2 % (42.0-75.0); Hemoglobin 15.7 g/dL (14.0-18.0); Mean Corpuscular HGB CONC 34.8 g/dL (32.0-36.0); Mean Corpuscular Hemoglobin 33.5 pg (27.0-31.0); Mean Corpuscular Volume 96.2 fL (78.0-98.0); Mean Platelet Volume 9.8 fL (7.4-10.4); Platelet Count 108 thou/uL (130-400); RBC Distribution Width 13.1 % (11.5-14.5); Red Blood Cell (RBC) Count 4.68 mill/uL (4.70-6.10); White Blood Cell (WBC) Count 4.9 thou/uL (4.8-10.8)
[2020-02-12 12:39] LABS: Digoxin Less than 0.15 ng/mL (0.8-2.0)
--- NOTE | 2020-02-12 12:40 | RAD ---
Exam: Chest one view HISTORY:COVID positive. Worsening symptoms. Comparison: 12/24/2019 FINDINGS: Cardiac silhouette:Cardiomegaly. Limited evaluation left-sided transvenous pacemaker due to underpene tration from portable technique Aorta: Unremarkable Pulmonary vessels: Normal Costophrenic angles: Possible left-sided effusion. LUNGS: Left lower lobe of parenchymal changes cannot be excluded. Pneumothorax: None Osseous abnormalities: None IMPRESSION: Limited evaluation left lung base due to portable technique. Pleural and parenchymal curran ges cannot be excluded. Dedicated two-view chest radiograph is recommended.
[2020-02-12 12:47] LABS: ALT (SGPT) 36 U/L (8-55); AST (SGOT) 37 U/L (5-34); Albumin 4.2 g/dL (3.5-5.0); Alkaline Phosphatase 53 U/L (40-110); Anion Gap 14 mmol/L (10-20); BUN (Urea Nitrogen) 13 mg/dL (8.9-20.6); Bilirubin, Total 0.4 mg/dL (0.2-1.2); Calc. Creatinine Clearance 0 mL/min (70-130); Calcium 8.9 mg/dL (7.8-10.44); Carbon Dioxide 27 mmol/L (22-29); Chloride 101 mmol/L (98-107); Estimated GFR-MDRD 74; Globulin 3.1 g/dL (2.4-3.5); Glucose 89 mg/dL (70-105); Lipase 20 U/L (8-78); Potassium 3.8 mmol/L (3.5-5.1); Protein, Total 7.3 g/dL (6.0-8.3); Sodium 138 mmol/L (136-145)
[2020-02-12] MEDS ORDERED: Aspirin Chewable 81 MG TAB ONE (13:32)
--- NOTE | 2020-02-12 14:34 | CT ---
CT PULMONARY ANGIOGRAM WITH IV CONTRAST AND 3D POSTPROCESSIN02/12/20 HISTORY: COVID-19 positive. Chest pain, cough, vomiting, chills, fever, myalgia. FINDINGS: No filling defects are seen in the pulmonary arterial vasculature to suggest pulmonary embolism. The thoracic aorta is well opacified without aneurysm or dissection. No pleural or pericardial effusions are seen. There are patchy ground glass infiltrates in the lung pacheco bilaterally with peripheral do minance. There are degenerative changes in the spine. Upper abdominal tomograms are unremarkable. IMPRESSION: 1. No CT evidence of pulmonary embolism. 2. Findings are consistent with COVID-19 pneumonia. POS: [facility]
== END 2020-02-12 15:02 | disposition home or self-care (01) ==
LOC: ERS 11:07
DX: U07.1 COVID-19 (principal); E78.00 Pure hypercholesterolemia, unspecified
CPT/HCPCS: 71045; 71275; 80053; 80162; 82553; 83690; 84484; 85025; 93005; 96360; 96361; Q9967

== ENCOUNTER 2020-02-14 14:12 | Inpatient (IN) | payer OTHER ==
[2020-02-14] MEDS ORDERED: Acetaminophen 500 MG TAB ONE (14:49)
[2020-02-14] MEDS ORDERED: Ibuprofen 200 MG TAB ONE (14:49)
[2020-02-14 14:52] LABS: #Lymphocytes 0.5 thou/uL (1.20-3.40); #Monocytes 0.4 thou/uL (0.11-0.59); #Neutrophils 2.8 thou/uL (1.40-6.50); %Basophils 0.1 % (0.0-1.0); %Eosinophils 0.3 % (0.0-10.0); %Lymphocytes 14.2 % (21.0-51.0); %Neutrophils 74.4 % (42.0-75.0); Hemoglobin 13.9 g/dL (14.0-18.0); Mean Corpuscular HGB CONC 34.9 g/dL (32.0-36.0); Mean Corpuscular Hemoglobin 32.9 pg (27.0-31.0); Mean Corpuscular Volume 94.3 fL (78.0-98.0); Mean Platelet Volume 9.4 fL (7.4-10.4); Platelet Count 111 thou/uL (130-400); RBC Distribution Width 12.7 % (11.5-14.5); Red Blood Cell (RBC) Count 4.22 mill/uL (4.70-6.10); White Blood Cell (WBC) Count 3.8 thou/uL (4.8-10.8)
[2020-02-14 15:12] LABS: ALT (SGPT) 34 U/L (8-55); AST (SGOT) 45 U/L (5-34); Albumin 3.9 g/dL (3.5-5.0); Alkaline Phosphatase 40 U/L (40-110); Anion Gap 13 mmol/L (10-20); BUN (Urea Nitrogen) 11 mg/dL (8.9-20.6); Bilirubin, Total 0.5 mg/dL (0.2-1.2); Calc. Creatinine Clearance 0 mL/min (70-130); Calcium 8.2 mg/dL (7.8-10.44); Carbon Dioxide 23 mmol/L (22-29); Chloride 102 mmol/L (98-107); Estimated GFR-MDRD Greater than 90; Globulin 2.9 g/dL (2.4-3.5); Glucose 95 mg/dL (70-105); Potassium 3.9 mmol/L (3.5-5.1); Protein, Total 6.8 g/dL (6.0-8.3); Sodium 134 mmol/L (136-145)
[2020-02-14 15:25] LABS: Actual Bicarbonate (HCO3a) 18.1 mEq/L (22-28); Analyzer IN Cardio ER; Base Excess (BEa) -3.8 mEq/L (-2.0 to +3.0); Calcium, Ionized (arterial) 1.07 mmol/L (1.12-1.30); Carboxyhemoglobin (COHb) 0.2 gm% (0.0-3.0); Hemoglobin (Hb) 13.8 g/dL (14.0-18.0); Potassium - ABG Lab 3.77 mmol/L (3.70-5.30); pH, Arterial 7.47 (7.35-7.45)
--- NOTE | 2020-02-14 15:27 | RAD ---
EXAM: CHEST ONE VIEW HISTORY: Covid positive. Chest pain. COMPARISON: CTA chest on 02/12/2020 FINDINGS: Dual lead left subclavian cardiac pacemaking device is noted in place. Cardiac silhouette appears enl arged. This does preclude evaluation of the left midlung zone and left lung base. There is prominence of the perihilar interstitial densities, but this may be secondary to the shallow depth in spiration and portable technique of the study. Multiple scattered peripherally located groundglass densities were seen within the lungs on prior CTA thorax which are not well visualized on this exam. Osseous structures have a normal appearance. IMPRESSION: 1. Cardiomegaly. 2. The previously seen groundglass density within the lungs on CTA chest are not visualized on this e xamination, but radiographs exhibit low sensitivity for evaluation of groundglass opacities.
[2020-02-14 15:28] LABS: ALV-art Gradient 85.015 (0-20); CO2 Tension 25.3 mmHg (35.0-45.0); Puncture Site RRA
[2020-02-14] MEDS ORDERED: Dexamethasone 10 MG/ML VIAL SLOW IVP SCH (16:07)
[2020-02-14] MEDS ORDERED: Senokot S 8.6-50 MG TAB PO PRN (16:08)
[2020-02-14] MEDS ORDERED: Dexamethasone 10 MG/ML VIAL ONE (16:24)
[2020-02-14 16:43] LABS: PTT 33.5 sec (22.9-36.1)
[2020-02-14] MEDS ORDERED: Enoxaparin Sodium 40 MG/0.4 ML SYRINGE SC SCH (17:30)
[2020-02-14 18:21] VITALS: BMI 51.5
[2020-02-14] MEDS ORDERED: Ondansetron ODT 4 MG TAB SL PRN (18:57)
[2020-02-14] MEDS ORDERED: Ondansetron PF 4 MG/2 ML Vial IVP PRN (18:57)
[2020-02-14] MEDS: Sodium Chloride 0.9% 1,000 ML IV SCH (19:25)
[2020-02-14] MEDS: Atorvastatin Calcium 40 MG TAB PO SCH (19:26)
--- NOTE | 2020-02-14 21:29 | HP ---
CHIEF COMPLAINT: Shortness of breath. HISTORY OF PRESENT ILLNESS: The patient is a 49-year-old male, who initially received a COVID testing, I believe approximately on February 04. The patient had symptoms. He had generalized body aches and pains, fever. He states he lives with his brother. Most likely, got COVID from his brother. The patient at this time was tested positive on February 06. However, the patient was not admitted to the hospital since he was not hypoxic, just had flu-like symptoms. The patient stated that since then he has deteriorated to the point that he has been having more fevers on and off, body aches and pains, diarrhea. He was very short of breath and also has been very drowsy and sleepy. PAST MEDICAL HISTORY: As of the followin. Obesity. 2. Obstructive sleep apnea. 3. Bradycardia status post pacemaker placement. PAST SURGICAL HISTORY: He has had a pacemaker placement which was December of 2019. FAMILY HISTORY: History of obesity. SOCIAL HISTORY: Denies any smoking, drinking, or alcohol abuse. He ambulates independently. REVIEW OF SYSTEMS: All negative except for the ones mentioned above in the HPI. PHYSICAL EXAMINATION: VITAL SIGNS: As of the following; temperature of 100.4, blood pressure 110/58, 66, 20, 94% on 2 L. GENERAL: He is awake, alert, and oriented x3. Does not appear in any distress. CV: S1, S2 present. No murmurs, rubs, or gallops. LUNGS: Clear to auscultation. No rhonchi or wheezes noted. ABDOMEN: Obese. Bowel sounds are present x2. EXTREMITIES: No edema. Pedal pulses are present x2. Neurovascular-najera, no focal deficits noted. SKIN: No cuts, lesions or bruises noted. LABORATORY DATA: His pH was 7.47, pCO2 of 25.3, O2 was 83. However, he was noted to be hypoxic when doing vital signs. This ABG was on oxygen. His chest x-ray indicated ground-glass opacity. Sodium 134, potassium of 3.9, BUN of 11, creatinine 0.81, AST is 45, ALT is 34. WBCs of 3.8, hemoglobin of 13.9, hematocrit of 39.8, platelets of 111. His lymphocyte is 0.5. CRP and ferritin are pending. ASSESSMENT AND PLAN: The patient is a very pleasant 49-year-old male, who presents to the hospital with complaints of shortness of breath. 1. Acute hypoxia, most likely secondary from COVID pneumonia. We will start patient on some Decadron. The patient is hypoxic. We will start deep venous thrombosis prophylaxis. We will continue to monitor the patient. This maybe the 10th day of patient's symptoms. I will hold off on any remdesivir from now. The patient states that he feels a lot better just with oxygen. We will watch and see what his CRP and ferritin is. 2. Obesity. We will start patient on his CPAP. We will continue to monitor. 3. Obstructive sleep apnea. We will continue his CPAP. 4. Deep venous thrombosis prophylaxis. We will put patient on SCDs. 5. COVID pneumonia. Again, symptomatic management. We will start him on dexamethasone daily, PPI, and continue to monitor him. Job ID: [id number]
[2020-02-15] MEDS: Sodium Chloride 0.9% 1,000 ML IV SCH (03:04)
[2020-02-15 06:44] LABS: #Lymphocytes 0.4 thou/uL (1.20-3.40); #Monocytes 0.2 thou/uL (0.11-0.59); #Neutrophils 1.9 thou/uL (1.40-6.50); %Basophils 1.9 % (0.0-1.0); %Eosinophils 0.3 % (0.0-10.0); %Lymphocytes 16.7 % (21.0-51.0); %Monocytes 6.1 % (0.0-10.0); %Neutrophils 74.9 % (42.0-75.0); Hemoglobin 13.2 g/dL (14.0-18.0); Mean Corpuscular Hemoglobin 31.2 pg (27.0-31.0); Mean Corpuscular Volume 94.6 fL (78.0-98.0); Mean Platelet Volume 9.6 fL (7.4-10.4); Platelet Count 120 thou/uL (130-400); RBC Distribution Width 12.6 % (11.5-14.5); Red Blood Cell (RBC) Count 4.24 mill/uL (4.70-6.10); White Blood Cell (WBC) Count 2.5 thou/uL (4.8-10.8)
[2020-02-15 07:09] LABS: ALT (SGPT) 30 U/L (8-55); AST (SGOT) 43 U/L (5-34); Albumin 3.5 g/dL (3.5-5.0); Alkaline Phosphatase 41 U/L (40-110); Anion Gap 12 mmol/L (10-20); BUN (Urea Nitrogen) 12 mg/dL (8.9-20.6); Bilirubin, Total 0.4 mg/dL (0.2-1.2); Calc. Creatinine Clearance 290 mL/min (70-130); Calcium 7.8 mg/dL (7.8-10.44); Carbon Dioxide 23 mmol/L (22-29); Chloride 106 mmol/L (98-107); Estimated GFR-MDRD Greater than 90; Glucose 162 mg/dL (70-105); Potassium 4.1 mmol/L (3.5-5.1); Protein, Total 6.5 g/dL (6.0-8.3); Sodium 137 mmol/L (136-145)
[2020-02-15] MEDS: Aspirin 81 mg Enteric Coated Tablet PO SCH (07:37)
[2020-02-15] MEDS: Dexamethasone 4 mg/ml Vial SLOW IVP SCH (07:38)
[2020-02-15] MEDS: Enoxaparin Sodium 40 MG/0.4 ML SYRINGE SC SCH (07:38)
[2020-02-15] MEDS: Acetaminophen 325 MG TAB PO PRN (07:43)
--- NOTE | 2020-02-15 16:58 | PDOC.HOSPP ---
- Subjective Encounter Date: 02/15/20 Encounter Time: 12:30 Subjective: pt up in bed complains of sob and diarrhea - Objective Vital Signs & Weight: Vital Signs (12 hours) Temp Pulse Resp BP Pulse Ox 02/15/20 11:26 97.9 F 67 20 120/73 93 L 02/15/20 08:02 97.0 F L 62 20 119/72 95 02/15/20 08:00 95 Weight Admit Weight 380 lb Weight 380 lb Result Diagrams: 02/15/20 06:23 02/15/20 06:24 Hospitalist ROS - Review of Systems Respiratory: reports: shortness of breath Cardiovascular: denies: chest pain, palpitations, orthopnea, paroxysmal noc. dyspnea, edema, light headedness, other Gastrointestinal: reports: abdominal pain, diarrhea Genitourinary: denies: dysuria, frequency, incontinence, hematuria, retention, other - Medication Medications: Active Medications Generic Name Dose Route Start Last Admin Trade Name Freq PRN Reason Stop Dose Admin Acetaminophen 650 mg 02/14/20 16:08 02/15/20 07:43 Tylenol PO 650 mg Q4H PRN Administration Headache/Fever/Mild Pain (1-3) Aspirin 81 mg 02/15/20 09:00 02/15/20 07:37 Ecotrin PO 81 mg DAILY FACUNDO Administration Atorvastatin Calcium 40 mg 02/14/20 21:00 02/14/20 19:26 Lipitor PO 40 mg HS FACUNDO Administration Dexamethasone 6 mg 02/15/20 09:00 02/15/20 07:38 Decadron SLOW IVP 6 mg DAILY FACUNDO Administration Enoxaparin Sodium 40 mg 02/15/20 09:00 02/15/20 07:38 Lovenox SC 40 mg 09 FACUNDO Administration Pantoprazole Sodium 40 mg 02/15/20 09:00 02/15/20 07:37 Protonix PO 40 mg DAILY FACUNDO Administration Sodium Chloride 10 ml 02/14/20 21:00 02/15/20 07:39 Flush - Normal Saline IVF Not Given Q12HR FACUNDO - Exam Heart: negative: RRR, no murmur, no gallops, no rubs, normal peripheral pulses, irregular, diminshed peripheral pulses, murmur present, II/IV, III/IV Respiratory: negative: CTAB, no wheezes, no rales, no ronchi, normal chest expansion, no tachypnea, normal percussion, rales, rhonchi, tachypneic, wheezes Gastrointestinal: soft, normal bowel sounds Gastrointestinal - other findings: mild abdomen pain on palpation Extremities: 1+ LE edema Hosp A/P (1) Acute respiratory failure with hypoxia Code(s): J96.01 - ACUTE RESPIRATORY FAILURE WITH HYPOXIA Status: Acute (2) COVID-19 Code(s): U07.1 - COVID-19 Status: Acute (3) Morbid obesity Code(s): E66.01 - MORBID (SEVERE) OBESITY DUE TO EXCESS CALORIES Status: Chronic (4) ELISABETH (obstructive sleep apnea) Code(s): G47.33 - OBSTRUCTIVE SLEEP APNEA (ADULT) (PEDIATRIC) Status: Chronic - Plan will continue steroids for now. pt continues to have diarrhea most likely due to covid. will check diarrhea for stool studies. pt states he feels well on oxygen will continue. pt on dvt ppx. will add vit c and zinc.
[2020-02-15] MEDS: Atorvastatin Calcium 40 MG TAB PO SCH (19:44)
[2020-02-16] MEDS: Acetaminophen 325 MG TAB PO PRN ×2 (01:53→22:14)
[2020-02-16] MEDS: Dexamethasone 4 mg/ml Vial SLOW IVP SCH (10:05)
[2020-02-16] MEDS: Enoxaparin Sodium 40 MG/0.4 ML SYRINGE SC SCH (10:05)
[2020-02-16] MEDS: Aspirin 81 mg Enteric Coated Tablet PO SCH (10:07)
[2020-02-16] MEDS: Ascorbic Acid 500 mg Chewable Tablet PO SCH (10:07)
[2020-02-16] MEDS: Zinc Sulfate 220 MG CAP PO SCH (10:07)
[2020-02-16 11:02] LABS: #Lymphocytes 0.7 thou/uL (1.20-3.40); #Monocytes 0.6 thou/uL (0.11-0.59); #Neutrophils 7.3 thou/uL (1.40-6.50); %Basophils 0.3 % (0.0-1.0); %Eosinophils 0.1 % (0.0-10.0); %Lymphocytes 8.6 % (21.0-51.0); %Monocytes 6.5 % (0.0-10.0); %Neutrophils 84.5 % (42.0-75.0); Hemoglobin 13.3 g/dL (14.0-18.0); Mean Corpuscular HGB CONC 34.1 g/dL (32.0-36.0); Mean Corpuscular Hemoglobin 32.4 pg (27.0-31.0); Mean Corpuscular Volume 95.2 fL (78.0-98.0); Mean Platelet Volume 9.5 fL (7.4-10.4); Platelet Count 147 thou/uL (130-400); RBC Distribution Width 12.8 % (11.5-14.5); White Blood Cell (WBC) Count 8.6 thou/uL (4.8-10.8)
[2020-02-16 11:23] LABS: ALT (SGPT) 27 U/L (8-55); AST (SGOT) 34 U/L (5-34); Albumin 3.6 g/dL (3.5-5.0); Alkaline Phosphatase 37 U/L (40-110); Anion Gap 10 mmol/L (10-20); BUN (Urea Nitrogen) 13 mg/dL (8.9-20.6); Bilirubin, Total 0.5 mg/dL (0.2-1.2); CRP (Inflammatory) 4.35 mg/dL (= or < 0.5); Calc. Creatinine Clearance 266 mL/min (70-130); Calcium 8.1 mg/dL (7.8-10.44); Carbon Dioxide 27 mmol/L (22-29); Chloride 105 mmol/L (98-107); Estimated GFR-MDRD Greater than 90; Globulin 2.7 g/dL (2.4-3.5); Glucose 108 mg/dL (70-105); Potassium 3.6 mmol/L (3.5-5.1); Protein, Total 6.3 g/dL (6.0-8.3); Sodium 138 mmol/L (136-145)
--- NOTE | 2020-02-16 17:01 | PDOC.HOSPP ---
- Subjective Encounter Date: 02/16/20 Encounter Time: 11:30 Subjective: pt up in bed states he feels a bit better - Objective Vital Signs & Weight: Vital Signs (12 hours) Pulse Ox 02/16/20 08:00 94 L Weight Admit Weight 380 lb Weight 380 lb I&O: 02/15/20 02/16/20 02/17/20 06:59 06:59 06:59 Intake Total 1999 Balance 2000 Result Diagrams: 02/16/20 10:51 02/16/20 10:51 Hospitalist ROS - Review of Systems Cardiovascular: denies: chest pain, palpitations, orthopnea, paroxysmal noc. dyspnea, edema, light headedness, other Gastrointestinal: denies: nausea, vomiting, abdominal pain, diarrhea, constipation, melena, hematochezia, other Genitourinary: denies: dysuria, frequency, incontinence, hematuria, retention, other - Medication Medications: Active Medications Generic Name Dose Route Start Last Admin Trade Name Freq PRN Reason Stop Dose Admin Acetaminophen 650 mg 02/14/20 16:08 02/16/20 01:53 Tylenol PO 650 mg Q4H PRN Administration Headache/Fever/Mild Pain (1-3) Ascorbic Acid 1,000 mg 02/16/20 09:00 02/16/20 10:07 Vitamin C PO 1,000 mg DAILY FACUNDO Administration Aspirin 81 mg 02/15/20 09:00 02/16/20 10:07 Ecotrin PO 81 mg DAILY FACUNDO Administration Atorvastatin Calcium 40 mg 02/14/20 21:00 02/15/20 19:44 Lipitor PO 40 mg HS FACUNDO Administration Dexamethasone 6 mg 02/15/20 09:00 02/16/20 10:05 Decadron SLOW IVP 6 mg DAILY FACUNDO Administration Enoxaparin Sodium 40 mg 02/15/20 09:00 02/16/20 10:05 Lovenox SC 40 mg 0900 FACUNDO Administration Pantoprazole Sodium 40 mg 02/15/20 09:00 02/16/20 10:07 Protonix PO 40 mg DAILY FACUNDO Administration Sodium Chloride 10 ml 02/14/20 21:00 02/16/20 10:08 Flush - Normal Saline IVF 10 ml Q12HR FACUNDO Administration Zinc Sulfate 220 mg 02/16/20 09:00 02/16/20 10:07 Zinc Sulfate PO 220 mg DAILY FACUNDO Administration - Exam Neck: negative: supple, symmetric, no JVD, no thyromegaly, no lymphadenopathy, no carotid bruit, JVD Heart: negative: RRR, no murmur, no gallops, no rubs, normal peripheral pulses, irregular, diminshed peripheral pulses, murmur present, II/IV, III/IV Respiratory: rales Gastrointestinal: negative: soft, non-tender, non-distended, normal bowel sounds , no palpable masses, no hepatomegaly, no splenomegaly, no bruit, no guarding, no rigidity, tender to palpation, distended, diminished bowl sounds, voluntary guarding Hosp A/P (1) Acute respiratory failure with hypoxia Code(s): J96.01 - ACUTE RESPIRATORY FAILURE WITH HYPOXIA Status: Acute (2) COVID-19 Code(s): U07.1 - COVID-19 Status: Acute (3) Morbid obesity Code(s): E66.01 - MORBID (SEVERE) OBESITY DUE TO EXCESS CALORIES Status: Chronic (4) ELISABETH (obstructive sleep apnea) Code(s): G47.33 - OBSTRUCTIVE SLEEP APNEA (ADULT) (PEDIATRIC) Status: Chronic - Plan will continue steroids for now. pt continues to have diarrhea most likely due to covid. will check diarrhea for stool studies. pt states he feels well on oxygen will continue. pt on dvt ppx. will add vit c and zinc. 02/15 pt's inflammatory markers are improving. His stool studies are negative. He has no more diarrhea. possible discharge in the next 24-48hr.
[2020-02-16] MEDS: Atorvastatin Calcium 40 MG TAB PO SCH (22:10)
[2020-02-17] MEDS: Acetaminophen 325 MG TAB PO PRN ×3 (03:13→17:13)
[2020-02-17] MEDS: Enoxaparin Sodium 40 MG/0.4 ML SYRINGE SC SCH (07:47)
[2020-02-17] MEDS: Ascorbic Acid 500 mg Chewable Tablet PO SCH (07:47)
[2020-02-17] MEDS: Aspirin 81 mg Enteric Coated Tablet PO SCH (07:48)
[2020-02-17] MEDS: Dexamethasone 4 mg/ml Vial SLOW IVP SCH (07:48)
[2020-02-17] MEDS: Zinc Sulfate 220 MG CAP PO SCH (07:48)
--- NOTE | 2020-02-17 12:05 | RAD ---
CHEST 1 VIEW: HISTORY: Shortness of breath. COMPARISON: Radiograph 02/14/2020. FINDINGS: Heart size is enlarged. Dual-lead pacer is similar. Multifocal airspace opacities are relatively similar. Lungs are hypoinflated. IMPRESSION: Similar examination of the chest without significant worsening. POS: [facility]
--- NOTE | 2020-02-17 14:53 | PDOC.HOSPP ---
- Subjective Encounter Date: 02/17/20 Encounter Time: 10:00 Subjective: pt up in bed no complains. pt states that he was feeling unwell earlier but now he feels well. - Objective Vital Signs & Weight: Vital Signs (12 hours) Temp Pulse Resp BP Pulse Ox 02/17/20 11:00 99.3 F 72 20 115/60 93 L 02/17/20 08:00 90 L 02/17/20 07:33 100.9 F H 71 18 102/67 90 L 02/17/20 03:33 103.1 F H 83 20 98/59 L 92 L Weight Admit Weight 380 lb Weight 380 lb I&O: 02/16/20 02/17/20 02/18/20 06:59 06:59 06:59 Intake Total 1999 Balance 1999 Result Diagrams: 02/16/20 10:51 02/16/20 10:51 Hospitalist ROS - Review of Systems Cardiovascular: denies: chest pain, palpitations, orthopnea, paroxysmal noc. dyspnea, edema, light headedness, other Gastrointestinal: denies: nausea, vomiting, abdominal pain, diarrhea, constipation, melena, hematochezia, other Genitourinary: denies: dysuria, frequency, incontinence, hematuria, retention, other - Medication Medications: Active Medications Generic Name Dose Route Start Last Admin Trade Name Heather PRN Reason Stop Dose Admin Acetaminophen 650 mg 02/14/20 16:08 02/17/20 07:48 Tylenol PO 650 mg Q4H PRN Administration Headache/Fever/Mild Pain (1-3) Ascorbic Acid 1,000 mg 02/16/20 09:00 02/17/20 07:47 Vitamin C PO 1,000 mg DAILY FACUNDO Administration Aspirin 81 mg 02/15/20 09:00 02/17/20 07:48 Ecotrin PO 81 mg DAILY FACUNDO Administration Atorvastatin Calcium 40 mg 02/14/20 21:00 02/16/20 22:10 Lipitor PO 40 mg HS FACUNDO Administration Dexamethasone 6 mg 02/15/20 09:00 02/17/20 07:48 Decadron SLOW IVP 6 mg DAILY FACUNDO Administration Enoxaparin Sodium 40 mg 02/15/20 09:00 02/17/20 07:47 Lovenox SC 40 mg 0900 FACUNDO Administration Pantoprazole Sodium 40 mg 02/15/20 09:00 02/17/20 07:48 Protonix PO 40 mg DAILY FACUNDO Administration Sodium Chloride 10 ml 02/14/20 21:00 02/17/20 07:49 Flush - Normal Saline IVF 10 ml Q12HR FACUNDO Administration Zinc Sulfate 220 mg 02/16/20 09:00 02/17/20 07:48 Zinc Sulfate PO 220 mg DAILY FACUNDO Administration - Exam Neck: negative: supple, symmetric, no JVD, no thyromegaly, no lymphadenopathy, no carotid bruit, JVD Heart: negative: RRR, no murmur, no gallops, no rubs, normal peripheral pulses, irregular, diminshed peripheral pulses, murmur present, II/IV, III/IV Respiratory: negative: CTAB, no wheezes, no rales, no ronchi, normal chest expansion, no tachypnea, normal percussion, rales, rhonchi, tachypneic, wheezes Gastrointestinal: negative: soft, non-tender, non-distended, normal bowel sounds , no palpable masses, no hepatomegaly, no splenomegaly, no bruit, no guarding, no rigidity, tender to palpation, distended, diminished bowl sounds, voluntary guarding Hosp A/P (1) Acute respiratory failure with hypoxia Code(s): J96.01 - ACUTE RESPIRATORY FAILURE WITH HYPOXIA Status: Acute (2) COVID-19 Code(s): U07.1 - COVID-19 Status: Acute (3) Morbid obesity Code(s): E66.01 - MORBID (SEVERE) OBESITY DUE TO EXCESS CALORIES Status: Chronic (4) ELISABETH (obstructive sleep apnea) Code(s): G47.33 - OBSTRUCTIVE SLEEP APNEA (ADULT) (PEDIATRIC) Status: Chronic - Plan will continue steroids for now. pt continues to have diarrhea most likely due to covid. will check diarrhea for stool studies. pt states he feels well on oxygen will continue. pt on dvt ppx. will add vit c and zinc. 02/15 pt's inflammatory markers are improving. His stool studies are negative. He has no more diarrhea. possible discharge in the next 24-48hr. 02/16 pt's inflammatory markers are slightly higher than before. Pt has no more diarrhea. pt still on oxygen. will continue to monitor. will continues steroids.
[2020-02-17] MEDS: Atorvastatin Calcium 40 MG TAB PO SCH (21:43)
[2020-02-18] MEDS: Dexamethasone 4 mg/ml Vial SLOW IVP SCH (07:55)
[2020-02-18] MEDS: Aspirin 81 mg Enteric Coated Tablet PO SCH (07:55)
[2020-02-18] MEDS: Ascorbic Acid 500 mg Chewable Tablet PO SCH (07:55)
[2020-02-18] MEDS: Acetaminophen 325 MG TAB PO PRN ×2 (07:55→17:36)
[2020-02-18] MEDS: Zinc Sulfate 220 MG CAP PO SCH (07:56)
[2020-02-18] MEDS: Enoxaparin Sodium 40 MG/0.4 ML SYRINGE SC SCH ×2 (07:56→20:22)
--- NOTE | 2020-02-18 17:22 | PDOC.HOSPP ---
- Subjective Encounter Date: 02/18/20 Encounter Time: 09:55 Subjective: pt up in chair feels sob, no fever in the past 24hr. pt does not feel comfortable going home. - Objective Vital Signs & Weight: Vital Signs (12 hours) Temp Pulse Resp BP Pulse Ox 02/18/20 15:00 98.5 F 70 20 112/68 91 L 02/18/20 11:00 98.6 F 67 20 135/80 92 L 02/18/20 08:00 91 L 02/18/20 07:00 98.5 F 66 20 137/82 91 L Weight Admit Weight 380 lb Weight 380 lb Result Diagrams: 02/16/20 10:51 02/16/20 10:51 Hospitalist ROS - Review of Systems Cardiovascular: denies: chest pain, palpitations, orthopnea, paroxysmal noc. dyspnea, edema, light headedness, other Gastrointestinal: denies: nausea, vomiting, abdominal pain, diarrhea, constipation, melena, hematochezia, other Genitourinary: denies: dysuria, frequency, incontinence, hematuria, retention, other - Medication Medications: Active Medications Generic Name Dose Route Start Last Admin Trade Name Freq PRN Reason Stop Dose Admin Acetaminophen 650 mg 02/14/20 16:08 02/18/20 07:55 Tylenol PO 650 mg Q4H PRN Administration Headache/Fever/Mild Pain (1-3) Ascorbic Acid 1,000 mg 02/16/20 09:00 02/18/20 07:55 Vitamin C PO 1,000 mg DAILY FACUNDO Administration Aspirin 81 mg 02/15/20 09:00 02/18/20 07:55 Ecotrin PO 81 mg DAILY FACUNDO Administration Atorvastatin Calcium 40 mg 02/14/20 21:00 02/17/20 21:43 Lipitor PO 40 mg HS FACUNDO Administration Dexamethasone 6 mg 02/15/20 09:00 02/18/20 07:55 Decadron SLOW IVP 6 mg DAILY FACUNDO Administration Pantoprazole Sodium 40 mg 02/15/20 09:00 02/18/20 07:55 Protonix PO 40 mg DAILY FACUNDO Administration Sodium Chloride 10 ml 02/14/20 21:00 02/18/20 07:56 Flush - Normal Saline IVF 10 ml Q12HR FACUNDO Administration Zinc Sulfate 220 mg 02/16/20 09:00 02/18/20 07:56 Zinc Sulfate PO 220 mg DAILY FACUNDO Administration - Exam Heart: negative: RRR, no murmur, no gallops, no rubs, normal peripheral pulses, irregular, diminshed peripheral pulses, murmur present, II/IV, III/IV Respiratory: negative: CTAB, no wheezes, no rales, no ronchi, normal chest expansion, no tachypnea, normal percussion, rales, rhonchi, tachypneic, wheezes Gastrointestinal: negative: soft, non-tender, non-distended, normal bowel sounds , no palpable masses, no hepatomegaly, no splenomegaly, no bruit, no guarding, no rigidity, tender to palpation, distended, diminished bowl sounds, voluntary guarding Extremities: 1+ LE edema Hosp A/P (1) Acute respiratory failure with hypoxia Code(s): J96.01 - ACUTE RESPIRATORY FAILURE WITH HYPOXIA Status: Acute (2) COVID-19 Code(s): U07.1 - COVID-19 Status: Acute (3) Morbid obesity Code(s): E66.01 - MORBID (SEVERE) OBESITY DUE TO EXCESS CALORIES Status: Chronic (4) ELISABETH (obstructive sleep apnea) Code(s): G47.33 - OBSTRUCTIVE SLEEP APNEA (ADULT) (PEDIATRIC) Status: Chronic - Plan will continue steroids for now. pt continues to have diarrhea most likely due to covid. will check diarrhea for stool studies. pt states he feels well on oxygen will continue. pt on dvt ppx. will add vit c and zinc. 02/15 pt's inflammatory markers are improving. His stool studies are negative. He has no more diarrhea. possible discharge in the next 24-48hr. 02/16 pt's inflammatory markers are slightly higher than before. Pt has no more diarrhea. pt still on oxygen. will continue to monitor. will continues steroids. 02/17 will check inflammatory markers in am if stable will be discharged. He may need home oxygen. no need for abx.
[2020-02-18] MEDS: Atorvastatin Calcium 40 MG TAB PO SCH (20:22)
[2020-02-19] MEDS: Acetaminophen 325 MG TAB PO PRN (05:05)
[2020-02-19 05:44] LABS: #Eosinphils 0.1 thou/uL (0.0-0.7); #Lymphocytes 0.8 thou/uL (1.20-3.40); #Monocytes 0.6 thou/uL (0.11-0.59); #Neutrophils 7.4 thou/uL (1.40-6.50); %Basophils 0.1 % (0.0-1.0); %Eosinophils 0.7 % (0.0-10.0); %Lymphocytes 9.5 % (21.0-51.0); %Monocytes 6.2 % (0.0-10.0); %Neutrophils 83.5 % (42.0-75.0); Hemoglobin 12.6 g/dL (14.0-18.0); Mean Corpuscular HGB CONC 32.2 g/dL (32.0-36.0); Mean Corpuscular Volume 96.3 fL (78.0-98.0); Mean Platelet Volume 8.8 fL (7.4-10.4); Platelet Count 205 thou/uL (130-400); RBC Distribution Width 12.7 % (11.5-14.5); Red Blood Cell (RBC) Count 4.07 mill/uL (4.70-6.10); White Blood Cell (WBC) Count 8.8 thou/uL (4.8-10.8)
[2020-02-19 06:03] LABS: ALT (SGPT) 37 U/L (8-55); AST (SGOT) 34 U/L (5-34); Albumin 3.3 g/dL (3.5-5.0); Alkaline Phosphatase 53 U/L (40-110); Anion Gap 13 mmol/L (10-20); BUN (Urea Nitrogen) 14 mg/dL (8.9-20.6); Bilirubin, Total 0.3 mg/dL (0.2-1.2); CRP (Inflammatory) 7.52 mg/dL (= or < 0.5); Calc. Creatinine Clearance 262 mL/min (70-130); Calcium 8.3 mg/dL (7.8-10.44); Carbon Dioxide 25 mmol/L (22-29); Chloride 105 mmol/L (98-107); Estimated GFR-MDRD Greater than 90; Glucose 104 mg/dL (70-105); Potassium 4.2 mmol/L (3.5-5.1); Protein, Total 6.3 g/dL (6.0-8.3); Sodium 139 mmol/L (136-145)
[2020-02-19] MEDS: Enoxaparin Sodium 40 MG/0.4 ML SYRINGE SC SCH (07:52)
[2020-02-19] MEDS: Aspirin 81 mg Enteric Coated Tablet PO SCH (07:52)
[2020-02-19] MEDS: Dexamethasone 4 mg/ml Vial SLOW IVP SCH (07:53)
[2020-02-19] MEDS: Ascorbic Acid 500 mg Chewable Tablet PO SCH (07:53)
[2020-02-19] MEDS: Zinc Sulfate 220 MG CAP PO SCH (07:53)
[2020-02-19] MEDS ORDERED: Furosemide 20 MG/2 ML VIAL SLOW IVP SCH (08:45)
[2020-02-19 13:47] VITALS: BP 128/76; TEMP 97.8
--- NOTE | 2020-02-20 20:36 | DIS ---
DATE OF ADMISSION: 02/14/2020 DATE OF DISCHARGE: 02/19/2020 DISCHARGE DIAGNOSES: 1. Acute hypoxic respiratory failure. 2. COVID pneumonia. 3. Obesity. 4. Bradycardia, has pacemaker. HOSPITAL COURSE: The patient is a 49-year-old male, who initially presented to the hospital with worsening shortness of breath. He was found to be very lethargic and was also found to be hypoxic. He was put on oxygen. He was put on steroids. His COVID was positive. The patient was continued to monitor through the hospital stay. He did have some diarrhea. Stool studies were checked, which were all negative for any infectious etiology. The patient at this time, continued to improve. He will be discharged home. He will follow up with his primary care. He will go home on steroids and oxygen. Given his significant comorbidities, especially with his obesity, I have continued his Eliquis. I have put him on Eliquis 5 mg twice a day given his body habitus and for DVT prophylaxis for about 15 days, then it will be stopped. I have explained to him the risks and benefits of bleeding and to get help if that occurs. Also, he will be on Decadron 6 mg daily for a total of 10 days. He also went home with oxygen. PHYSICAL EXAMINATION: VITAL SIGNS: His vitals on discharge were 97.8, 72, 20, 94% on 3 L, 128/76. GENERAL: He is awake, alert, and oriented x3. Does not appear in distress. CV: S1, S2 present. No murmurs, rubs, or gallops. Again, he has been COVID positive for about more than 13 to 14 days. I believe he will do well at home. Job ID: [id number]
== END 2020-02-19 16:54 | disposition home or self-care (01) | DRG 177 ==
LOC: ERS 14:12 → T4-A 17:42
PROVIDERS: ADMIT Internal Medicine; ATTEND Internal Medicine
PROC: 8E0ZXY6 Isolation (ICD-10-PCS; principal; 2020-02-14)
DX: U07.1 COVID-19 (principal); J12.89 Other viral pneumonia; J96.01 Acute respiratory failure with hypoxia; Z68.43 Body mass index [BMI] 50.0-59.9, adult; E66.01 Morbid (severe) obesity due to excess calories; G47.33 Obstructive sleep apnea (adult) (pediatric); Z95.0 Presence of cardiac pacemaker
CPT/HCPCS: 36415; 71045; 71275; 80053; 80162; 82553; 82728; 82805; 83630; 83690; 84484; 85025; 85610; 85730; 86140; 87324; 87449; 93005; 96360; 96361; 96374; J1100; J1650; J1940; Q9967